=== PATIENT | female | born 1950 | race Caucasian/White ===

== ENCOUNTER 2017-01-07 19:33 | Inpatient (IN) | payer MEDICARE, OTHER ==
[2017-01-07] MEDS ORDERED: Sodium Chloride 0.9% 1,000 ML IV SCH ×3 (21:30→23:00)
[2017-01-07] MEDS ORDERED: DOPamine/Dextrose 5%-Water 400 MG/250 ML BAG IV SCH (22:15)
--- NOTE | 2017-01-07 22:39 | EDM.PDOC ---
[id number]: NAUSEA,VOMITING,DIARRHEA Time Seen by Provider: 01/07/17 21:05 Source: Reports: Patient History Limitations: Reports: No limitations - History of Present Illness INITIAL COMMENTS - FREE TEXT/NARRATIVE: pt arrived stating that she had diarrhea and vomiting for the past 2 days. She is very weak and at first was not having a obtainable bp. Timing/Duration: Reports: Day(s):, Getting worse Location: generalized Quality: Reports: other (pt states she is not having severe abdomanal pain. 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: - Infectious Disease History Infectious Disease History: Reports: Chicken pox, Measles, Mumps, Rheumatic Fever - Past Surgical History GI Surgical History: Reports: Cholecystectomy Female Surgical History: Reports: Hysterectomy Musculoskeletal Surgical History: Reports: Other (see below) Other Musculoskeletal Surgeries/Procedures:: toe surgery Social & Family History - Tobacco Use Smoking Status *Q: Never Smoker Second Hand Smoke Exposure: No - Caffeine Use Caffeine Use: Reports: None - Recreational Drug Use Recreational Drug Use: No ED ROS GENERAL - Review of Systems Review Of Systems: See Below Constitutional: Reports: weakness, diaphoresis, decreased appetite, other (pt has had diarrhea and vomiting for the past 2 days. ) HEENT: Reports: No symptoms Respiratory: Reports: No Symptoms Cardiovascular: Reports: No symptoms Endocrine: Reports: no symptoms GI/Abdominal: Reports: Abdominal pain, Other ( low bp. ) : Reports: no symptoms Musculoskeletal: Reports: no symptoms Skin: Reports: no symptoms Neurological: Reports: No Symptoms Psychiatric: Reports: Anxiety ED EXAM, GI/ABD - Physical Exam Exam: See Below Course - Vital Signs Last Recorded V/S: Last Vital Signs Temp 37.6 C 01/09/17 08:00 Pulse 107 H 01/09/17 09:00 Resp 19 01/09/17 09:00 BP 101/65 01/09/17 09:00 Pulse Ox 97 01/09/17 09:00 - Orders/Labs/Meds Labs: Laboratory Tests 01/07/17 01/07/17 01/07/17 Range/Units 21:17 21:24 21:24 WBC 7.8 (4.5-11.0) K/uL RBC 4.51 (3.30-5.50) M/uL Hgb 13.2 (12.0-15.0) g/dL Hct 38.5 (36.0-48.0) % MCV 85 (80-98) fL MCH 29 (27-31) pg MCHC 34 (32-36) % Plt Count 139 L (150-400) K/uL Add Manual Diff Yes Neutrophils % (Manual) 66 (36-66) % Band Neutrophils % 25 H (5-11) % Lymphocytes % (Manual) 1 L (24-44) % Monocytes % (Manual) 5 (2-6) % Eosinophils % (Manual) 3 (2-4) % Polychromasia Puncture Site ABG pH (7.350-7.450) ABG pCO2 (35.0-42.0) mmHg ABG pO2 (75.0-100.0) mmHg ABG HCO3 (22.0-26.0) mmol/L ABG Total CO2 (21.0-25.0) mmol/L ABG O2 Saturation (95.0-98.0) % ABG O2 Content (15.0-23.0) %vol ABG Base Excess mm/L ABG Hemoglobin (12.0-16.0) g/dL ABG Oxyhemoglobin % ABG Carboxyhemoglobin (0.0-1.6) % ABG Methemoglobin % Biju Test O2 Delivery Device Oxygen Flow Rate L Sodium (140-148) mmol/L Potassium (3.6-5.2) mmol/L Chloride (100-108) mmol/L Carbon Dioxide (21-32) mmol/L Anion Gap (5.0-14.0) mmol/L BUN (7-18) mg/dL Creatinine (0.6-1.0) mg/dL Est Cr Clr Drug Dosing mL/min Estimated GFR (MDRD) (>60) Glucose (74-106) mg/dL Lactic Acid (0.4-2.0) mmol/L Calcium (8.5-10.1) mg/dL Total Bilirubin (0.2-1.0) mg/dL AST (15-37) U/L ALT (12-78) U/L Alkaline Phosphatase (46-116) U/L Troponin I (0.000-0.056) ng/mL C-Reactive Protein 27.55 H (0.0-0.3) mg/dL Total Protein (6.4-8.2) g/dL Albumin (3.4-5.0) g/dL Globulin (2.3-3.5) g/dL Albumin/Globulin Ratio (1.2-2.2) Urine Color Yellow Urine Appearance Cloudy Urine pH 5.0 (4.5-8.0) Ur Specific [employer] 1.025 (1.008-1.030) Urine Protein 100 H (NEGATIVE) mg/dL Urine Glucose (UA) 50 H (NEGATIVE) mg/dL Urine Ketones 15 H (NEGATIVE) mg/dL Urine Occult Blood Large (NEGATIVE) Urine Nitrite Negative (NEGATIVE) Urine Bilirubin Small (NEGATIVE) Urine Urobilinogen 1 (NORMAL) mg/dL Ur Leukocyte Esterase Moderate (NEGATIVE) Urine RBC 10-20 H (0-5) Urine WBC 10-20 H (0-5) Ur Epithelial Cells Many Amorphous Sediment Many Urine Bacteria Many Urine Mucus Not seen 01/07/17 01/07/17 01/07/17 Range/Units 21:24 21:35 22:20 WBC (4.5-11.0) K/uL RBC (3.30-5.50) M/uL Hgb (12.0-15.0) g/dL Hct (36.0-48.0) % MCV (80-98) fL MCH (27-31) pg MCHC (32-36) % Plt Count (150-400) K/uL Add Manual Diff Neutrophils % (Manual) (36-66) % Band Neutrophils % (5-11) % Lymphocytes % (Manual) (24-44) % Monocytes % (Manual) (2-6) % Eosinophils % (Manual) (2-4) % Polychromasia Puncture Site Rt.radial ABG pH 7.376 (7.350-7.450) ABG pCO2 25.1 L (35.0-42.0) mmHg ABG pO2 74.5 L (75.0-100.0) mmHg ABG HCO3 14.4 L (22.0-26.0) mmol/L ABG Total CO2 13.1 L (21.0-25.0) mmol/L ABG O2 Saturation 93.7 L (95.0-98.0) % ABG O2 Content 15.6 (15.0-23.0) %vol ABG Base Excess -9.1 mm/L ABG Hemoglobin 11.9 L (12.0-16.0) g/dL ABG Oxyhemoglobin 93.0 % ABG Carboxyhemoglobin 0.2 (0.0-1.6) % ABG Methemoglobin 0.6 % Biju Test Passed O2 Delivery Device Room air Oxygen Flow Rate 0 L Sodium 143 (140-148) mmol/L Potassium 3.2 L (3.6-5.2) mmol/L Chloride 103 (100-108) mmol/L Carbon Dioxide 18 L (21-32) mmol/L Anion Gap 25.2 H (5.0-14.0) mmol/L BUN 50 H (7-18) mg/dL Creatinine 4.0 H* (0.6-1.0) mg/dL Est Cr Clr Drug Dosing 11.29 mL/min Estimated GFR (MDRD) 11 L (>60) Glucose 84 (74-106) mg/dL Lactic Acid (0.4-2.0) mmol/L Calcium 8.7 (8.5-10.1) mg/dL Total Bilirubin 0.8 (0.2-1.0) mg/dL AST 64 H (15-37) U/L ALT 60 (12-78) U/L Alkaline Phosphatase 614 H (46-116) U/L Troponin I 0.191 H* (0.000-0.056) ng/mL C-Reactive Protein (0.0-0.3) mg/dL Total Protein 6.6 (6.4-8.2) g/dL Albumin 2.8 L (3.4-5.0) g/dL Globulin 3.8 H (2.3-3.5) g/dL Albumin/Globulin Ratio 0.7 L (1.2-2.2) Urine Color Urine Appearance Urine pH (4.5-8.0) Ur Specific [employer] (1.008-1.030) Urine Protein (NEGATIVE) mg/dL Urine Glucose (UA) (NEGATIVE) mg/dL Urine Ketones (NEGATIVE) mg/dL Urine Occult Blood (NEGATIVE) Urine Nitrite (NEGATIVE) Urine Bilirubin (NEGATIVE) Urine Urobilinogen (NORMAL) mg/dL Ur Leukocyte Esterase (NEGATIVE) Urine RBC (0-5) Urine WBC (0-5) Ur Epithelial Cells Amorphous Sediment Urine Bacteria Urine Mucus 01/07/17 Range/Units 22:58 WBC (4.5-11.0) K/uL RBC (3.30-5.50) M/uL Hgb (12.0-15.0) g/dL Hct (36.0-48.0) % MCV (80-98) fL MCH (27-31) pg MCHC (32-36) % Plt Count (150-400) K/uL Add Manual Diff Neutrophils % (Manual) (36-66) % Band Neutrophils % (5-11) % Lymphocytes % (Manual) (24-44) % Monocytes % (Manual) (2-6) % Eosinophils % (Manual) (2-4) % Polychromasia Puncture Site ABG pH (7.350-7.450) ABG pCO2 (35.0-42.0) mmHg ABG pO2 (75.0-100.0) mmHg ABG HCO3 (22.0-26.0) mmol/L ABG Total CO2 (21.0-25.0) mmol/L ABG O2 Saturation (95.0-98.0) % ABG O2 Content (15.0-23.0) %vol ABG Base Excess mm/L ABG Hemoglobin (12.0-16.0) g/dL ABG Oxyhemoglobin % ABG Carboxyhemoglobin (0.0-1.6) % ABG Methemoglobin % Biju Test O2 Delivery Device Oxygen Flow Rate L Sodium (140-148) mmol/L Potassium (3.6-5.2) mmol/L Chloride (100-108) mmol/L Carbon Dioxide (21-32) mmol/L Anion Gap (5.0-14.0) mmol/L BUN (7-18) mg/dL Creatinine (0.6-1.0) mg/dL Est Cr Clr Drug Dosing mL/min Estimated GFR (MDRD) (>60) Glucose (74-106) mg/dL Lactic Acid 6.8 H (0.4-2.0) mmol/L Calcium (8.5-10.1) mg/dL Total Bilirubin (0.2-1.0) mg/dL AST (15-37) U/L ALT (12-78) U/L Alkaline Phosphatase (46-116) U/L Troponin I (0.000-0.056) ng/mL C-Reactive Protein (0.0-0.3) mg/dL Total Protein (6.4-8.2) g/dL Albumin (3.4-5.0) g/dL Globulin (2.3-3.5) g/dL Albumin/Globulin Ratio (1.2-2.2) Urine Color Urine Appearance Urine pH (4.5-8.0) Ur Specific [employer] (1.008-1.030) Urine Protein (NEGATIVE) mg/dL Urine Glucose (UA) (NEGATIVE) mg/dL Urine Ketones (NEGATIVE) mg/dL Urine Occult Blood (NEGATIVE) Urine Nitrite (NEGATIVE) Urine Bilirubin (NEGATIVE) Urine Urobilinogen (NORMAL) mg/dL Ur Leukocyte Esterase (NEGATIVE) Urine RBC (0-5) Urine WBC (0-5) Ur Epithelial Cells Amorphous Sediment Urine Bacteria Urine Mucus Meds: Medications Discontinued Medications Generic Name Dose Route Start Last Admin Trade Name Freq PRN Reason Stop Dose Admin Acetaminophen 650 mg 01/08/17 00:49 Tylenol PO Q4H PRN Pain (Mild 1-3)/fever Albuterol 2.5 mg 01/08/17 00:49 01/09/17 04:06 Proventil Neb Soln NEB 2.5 mg Q4H PRN Administration Shortness Of Breath/wheezing Diphenhydramine HCl 25 - 50 mg 01/09/17 00:48 01/09/17 08:01 Benadryl IVPUSH 50 mg Q6H PRN Administration Itching Enoxaparin Sodium 30 mg 01/08/17 01:00 01/08/17 02:54 Lovenox SUBCUT 30 mg Q24H RADHA Administration Enoxaparin Sodium 30 mg 01/08/17 22:00 Lovenox SUBCUT Q24H RADHA Enoxaparin Sodium 30 mg 01/09/17 09:00 Lovenox SUBCUT Q24H RADHA Heparin Sodium (Porcine) 500 units 01/08/17 08:45 01/08/17 12:28 Heparin Lock Flush 100 Units/Ml Syringe FLUSH 500 units ASDIRECTED PRN Administration IV Use Sodium Chloride 1,000 mls @ 999 mls/hr 01/07/17 21:30 01/07/17 21:27 Normal Saline IV 999 mls/hr ASDIRECTED RADHA Administration Sodium Chloride 1,000 mls @ 500 mls/hr 01/07/17 22:00 01/07/17 23:00 Normal Saline IV 999 mls/hr ASDIRECTED RADHA Infusion Dopamine HCl/Dextrose 400 mg in 250 mls @ 12.145 mls/hr 01/07/17 22:15 00:30 Dopamine In D5w 400 Mg/250 Ml IV 5 mcg/kg/min TITRATE RADHA 20.242 mls/hr Protocol Titration 3 MCG/KG/MIN Sodium Chloride 1,000 mls @ 999 mls/hr 01/07/17 23:00 01/07/17 23:10 Normal Saline IV 999 mls/hr ASDIRECTED RADHA Administration Piperacillin Sod/Tazobactam 50 mls @ 100 mls/hr 01/07/17 23:45 01/08/17 00:05 Sod 3.375 gm/ Sodium Chloride IV 100 mls/hr Q6H RADHA Administration Sodium Chloride Confirm 01/07/17 23:56 01/08/17 08:04 Normal Saline Administered 01/07/17 23:57 Not Given Dose 50 mls @ as directed .ROUTE .STK-MED ONE Sodium Chloride 1,000 mls @ 999 mls/hr 01/08/17 00:00 01/08/17 01:05 Normal Saline IV 999 mls/hr ASDIRECTED RADHA Administration Levofloxacin/Dextrose 500 mg/ 100 mls @ 100 mls/hr 01/08/17 00:15 01/08/17 01 :15 Premix IV 01/08/17 01:14 100 mls/hr ONETIME ONE Administration Levofloxacin/Dextrose 250 mg/ 50 mls @ 50 mls/hr 01/10/17 00:00 Premix IV Q48H RADHA Vancomycin HCl 1.5 gm/ Sodium 250 mls @ 166.667 mls/hr 01/08/17 01:00 02:23 Chloride IV 01/08/17 02:29 166.667 mls/hr ONETIME ONE Administration Lactated Ringer's 1,000 mls @ 500 mls/hr 01/08/17 00:49 01/08/17 03:57 Ringers, Lactated IV 01/08/17 04:50 999 mls/hr ASDIRECTED RADHA Administration Lactated Ringer's 1,000 mls @ 500 mls/hr 01/08/17 04:30 01/08/17 13:24 Ringers, Lactated IV 500 mls/hr ASDIRECTED RADHA Administration Piperacillin Sod/Tazobactam 50 mls @ 100 mls/hr 01/08/17 06:00 01/08/17 05:34 Sod 2.25 gm/ Sodium Chloride IV 100 mls/hr Q6H RADHA Administration Sodium Chloride Confirm 01/08/17 01:11 01/08/17 02:42 Normal Saline Administered 01/08/17 01:12 Not Given Dose 250 mls @ as directed .ROUTE .STK-MED ONE Norepinephrine Bitartrate 4 mg 250 mls @ 7.5 mls/hr 01/08/17 01:30 / Dextrose/Water IV TITRATE RADHA Protocol 2 MCG/MIN Norepinephrine Bitartrate 4 mg 250 mls @ 7.5 mls/hr 01/08/17 01:30 01/09/17 08:55 / Sodium Chloride IV 20 mcg/min TITRATE RADHA 75 mls/hr Protocol Administration 2 MCG/MIN Potassium Chloride 100 mls @ 50 mls/hr 01/08/17 03:00 01/08/17 05:56 Kcl 20 Meq In Water 100 Ml IV 01/08/17 06:59 50 mls/hr Q2H RADHA Administration Lidocaine HCl Confirm 01/08/17 04:22 01/08/17 04:40 Xylocaine-Mpf 1% Administered 01/08/17 04:23 20 ml Dose Administration 2 mls @ as directed .ROUTE .STK-MED ONE Sodium Chloride Confirm 01/08/17 04:32 01/08/17 04:58 Normal Saline Administered 01/08/17 04:33 Not Given Dose 100 mls @ as directed .ROUTE .STK-MED ONE Vasopressin 100 units/ Sodium 100 mls @ 0.6 mls/hr 01/08/17 04:45 01/08/17 22 :06 Chloride IV 0.04 units/min TITRATE RADHA 2.4 mls/hr Protocol Titration 0.01 UNITS/MIN Levofloxacin/Dextrose 500 mg/ 100 mls @ 100 mls/hr 01/09/17 22:00 Premix IV Q48H RADHA Magnesium Sulfate 2 gm/ Premix 50 mls @ 25 mls/hr 01/08/17 10:00 01/09/17 03: 30 IV 01/09/17 05:59 25 mls/hr Q6H RADHA Administration Piperacillin Sod/Tazobactam 50 mls @ 100 mls/hr 01/08/17 14:00 01/09/17 05:28 Sod 2.25 gm/ Sodium Chloride IV 100 mls/hr Q8H RADHA Administration Calcium Gluconate 2 gm/ Sodium 120 mls @ 100 mls/hr 01/08/17 12:30 01/08/17 12:54 Chloride IV 01/08/17 13:41 100 mls/hr ONETIME ONE Administration Heparin Sodium (Porcine) 5,000 501 mls @ 5 mls/hr 01/08/17 12:30 01/08/17 13: 08 units/ Sodium Chloride IV 5 mls/hr ASDIRECTED RADHA Administration Lactated Ringer's 1,000 mls @ 100 mls/hr 01/08/17 13:30 01/09/17 08:45 Ringers, Lactated IV 100 mls/hr ASDIRECTED RADHA Administration Lactated Ringer's 500 mls @ 500 mls/hr 01/08/17 21:00 01/08/17 20:53 Ringers, Lactated IV 500 mls/hr ASDIRECTED RADHA Administration Lidocaine HCl Confirm 01/07/17 23:37 01/07/17 23:52 Xylocaine 2% Jelly Administered 01/07/17 23:38 10 ml Dose Administration 10 ml .ROUTE .STK-MED ONE Lidocaine HCl Confirm 01/08/17 04:30 01/08/17 04:50 Xylocaine-Mpf 1% Administered 01/08/17 04:31 Not Given Dose 5 ml .ROUTE .STK-MED ONE Lidocaine HCl 2 ml 01/08/17 04:58 01/08/17 05:57 Xylocaine 1% INJECT 01/08/17 04:59 2 ml ONETIME ONE Administration Lorazepam 0.5 mg 01/08/17 15:00 Ativan IVPUSH Q2H PRN Anxiety Morphine Sulfate 2 - 4 mg 01/08/17 14:59 01/09/17 03:39 Morphine IVPUSH 2 mg Q1H PRN Administration Pain Ondansetron HCl 4 mg 01/08/17 00:49 Zofran IV Q4H PRN Nausea/Vomiting Oxycodone HCl 5 mg 01/08/17 00:49 01/08/17 14:05 Oxycodone PO 5 mg Q4H PRN Administration Pain (moderate 4-6) Potassium Chloride 40 meq 01/08/17 02:01 01/08/17 02:55 Klor-Con M20 PO 01/08/17 02:02 40 meq ONETIME ONE Administration Sodium Chloride 10 ml 01/08/17 00:49 Saline Flush FLUSH ASDIRECTED PRN Keep Vein Open Vancomycin HCl 1 gm 01/07/17 23:45 Vancomycin IV .PHARMACY TO DOSE RADHA Vasopressin Confirm 01/08/17 04:32 01/08/17 04:58 Vasopressin Administered 01/08/17 04:33 Not Given Dose 100 units .ROUTE .[facility] ONE - Re-Assessments/Exams Free Text/Narrative Re-Assessment/Exam: 01/12/17 07:46 pt was bolused with 4 liters of fluid in the ER.She had a cat scan which showed a large stone in her left ureter. She is truly septic. Dr Bunch came in and took over on the pt. Departure - Departure Time of Disposition: 09:00 Disposition: Admitted As Inpatient 65 Clinical Impression: Septicemia
[2017-01-07] MEDS ORDERED: Lidocaine 2% Jelly 10 ML Urojet ONE (23:37)
[2017-01-07] MEDS ORDERED: Levofloxacin/Dextrose 5%-Water 500 MG in Premix Bag 1 BAG IV SCH (23:45)
[2017-01-07] MEDS ORDERED: Vancomycin 1 GM SDV IV SCH (23:45)
[2017-01-07] MEDS ORDERED: Piperacillin/Tazobactam 3.375 GM in Sodium Chloride 0.9% 50 ML IV SCH (23:45)
[2017-01-07] MEDS ORDERED: Sodium Chloride 0.9% 50 ML ONE (23:56)
[2017-01-08] MEDS: Sodium Chloride 0.9% 1,000 ML IV SCH ×2 (00:01→01:05)
[2017-01-08] MEDS ORDERED: Levofloxacin/Dextrose 5%-Water 500 MG in Premix Bag 1 BAG IV ONE (00:15)
--- NOTE | 2017-01-08 00:43 | PCM.HP ---
H&P History of Present Illness - General Date of Service: 01/08/17 Admit Problem/Dx: Admission Diagnosis/Problem Admission Diagnosis/Problem Septicemia Source of Information: Patient, Old records, Provider, RN notes reviewed History Limitations: Reports: No limitations - History of Present Illness Initial Comments - Free Text/Narative: This patient is a 66-year-old woman who was admitted through the emergency room to the ICU with sepsis thought to be secondary to urinary tract infection. She has had pain in her left flank over the past 5 days, pain has been intermittent , more severe over the past 2 days. For the last 2 days she's had nausea and vomiting associated with some diarrhea, negligible oral intake and minimal urine output. She presented to the emergency department this evening for further evaluation and was found to be hypotensive with systolic pressures into the low 70s. Laboratory studies and clotting blood gases show evidence of a severe metabolic acidosis with respiratory compensation. PH on blood gas was normal, PCO2 was 25, and her bicarbonate level was 13. Lactic acid level is elevated at 6.8. Chest x-ray shows no obvious infiltrates. CT scan of the abdomen and pelvis shows evidence of a large ureteral stone in the proximal left ureter. No evidence of significant hydronephrosis thus far. She's received vigorous IV fluid replacement in the emergency department in her systolic pressures as well as mean arterial pressure and now within acceptable range. Blood cultures have been obtained and she's been started on IV antibiotic therapy in the emergency department. 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: - Infectious Disease History Infectious Disease History: Reports: Chicken pox, Measles, Mumps, Rheumatic Fever - Past Surgical History GI Surgical History: Reports: Cholecystectomy Female Surgical History: Reports: Hysterectomy Musculoskeletal Surgical History: Reports: Other (see below) Other Musculoskeletal Surgeries/Procedures:: toe surgery Social & Family History - Tobacco Use Smoking Status *Q: Never Smoker Second Hand Smoke Exposure: No - Caffeine Use Caffeine Use: Reports: None - Recreational Drug Use Recreational Drug Use: No H&P Review of Systems - Review of Systems: Review Of Systems: See Below General: Reports: chills, weakness, diaphoresis, decreased appetite HEENT: Reports: no symptoms Pulmonary: Reports: No Symptoms Cardiovascular: Reports: no symptoms Gastrointestinal: Reports: Abdominal pain, Anorexia, Diarrhea, Nausea, Vomiting. Denies: Constipation, Difficulty swallowing, Distension Genitourinary: Reports: flank pain. Denies: dysuria, frequency, burning, pain Musculoskeletal: Reports: no symptoms Skin: Reports: no symptoms Psychiatric: Reports: no symptoms Neurological: Reports: No Symptoms Hematologic/Lymphatic: Reports: no symptoms Immunologic: Reports: no symptoms Exam - Exam Exam: See Below - Vital Signs Vital Signs: Last Vital Signs Temp 97.2 F 01/08/17 00:20 Pulse 120 H 01/08/17 00:31 Resp 20 01/08/17 00:31 BP 82/49 L 01/08/17 00:31 Pulse Ox 96 01/08/17 00:31 Weight: 238 lb - Exam Quality Assessment: supplemental oxygen, urinary catheter, DVT prophylaxis General: alert, oriented, cooperative, moderate distress HEENT: Conjunctiva clear, EOMI, Hearing intact, Nares patent, Normal nasal septum, Posterior pharynx clear, Pupils equal, Pupils reactive. No: Mucosa moist & pink Neck: supple, trachea midline, +2 carotid pulse wo bruit Lungs: Clear to auscultation, Normal respiratory effort Cardiovascular: regular rhythm, normal S1, normal S2, tachycardia. No: irregular rhythm, bradycardia, systolic murmur, diastolic murmur Abdomen: normal bowel sounds, soft, tenderness. No: organomegaly, peritoneal signs, distention, guarding, rigidity, rebound Back Exam: normal inspection, full range of motion, CVA tenderness (L) Extremities: 3, normal inspection, 10 Skin: warm, dry, intact Neurological: cranial nerves intact, strength equal bilateral, normal speech, normal tone, sensation intact. No: focal deficit Neuro Extensive - Mental Status: alert, oriented x3, normal mood/affect, normal cognition, memory intact - Patient Data Lab Results last 24 hrs: Laboratory Results - last 24 hr 01/07/17 01/07/17 01/07/17 Range/Units 21:24 21:24 21:24 WBC 7.8 (4.5-11.0) K/uL RBC 4.51 (3.30-5.50) M/uL Hgb 13.2 (12.0-15.0) g/dL Hct 38.5 (36.0-48.0) % MCV 85 (80-98) fL MCH 29 (27-31) pg MCHC 34 (32-36) % Plt Count 139 L (150-400) K/uL Add Manual Diff Yes Neutrophils % (Manual) 66 (36-66) % Band Neutrophils % 25 H (5-11) % Lymphocytes % (Manual) 1 L (24-44) % Monocytes % (Manual) 5 (2-6) % Eosinophils % (Manual) 3 (2-4) % Polychromasia Puncture Site ABG pH (7.350-7.450) ABG pCO2 (35.0-42.0) mmHg ABG pO2 (75.0-100.0) mmHg ABG HCO3 (22.0-26.0) mmol/L ABG Total CO2 (21.0-25.0) mmol/L ABG O2 Saturation (95.0-98.0) % ABG O2 Content (15.0-23.0) %vol ABG Base Excess mm/L ABG Hemoglobin (12.0-16.0) g/dL ABG Oxyhemoglobin % ABG Carboxyhemoglobin (0.0-1.6) % ABG Methemoglobin % Biju Test O2 Delivery Device Oxygen Flow Rate L Sodium 143 (140-148) mmol/L Potassium 3.2 L (3.6-5.2) mmol/L Chloride 103 (100-108) mmol/L Carbon Dioxide 18 L (21-32) mmol/L Anion Gap 25.2 H (5.0-14.0) mmol/L BUN 50 H (7-18) mg/dL Creatinine 4.0 H* (0.6-1.0) mg/dL Est Cr Clr Drug Dosing 11.29 mL/min Estimated GFR (MDRD) 11 L (>60) Glucose 84 (74-106) mg/dL Lactic Acid (0.4-2.0) mmol/L Calcium 8.7 (8.5-10.1) mg/dL Total Bilirubin 0.8 (0.2-1.0) mg/dL AST 64 H (15-37) U/L ALT 60 (12-78) U/L Alkaline Phosphatase 614 H (46-116) U/L Troponin I (0.000-0.056) ng/mL C-Reactive Protein 27.55 H (0.0-0.3) mg/dL Total Protein 6.6 (6.4-8.2) g/dL Albumin 2.8 L (3.4-5.0) g/dL Globulin 3.8 H (2.3-3.5) g/dL Albumin/Globulin Ratio 0.7 L (1.2-2.2) 01/07/17 01/07/17 01/07/17 Range/Units 21:35 22:20 22:58 WBC (4.5-11.0) K/uL RBC (3.30-5.50) M/uL Hgb (12.0-15.0) g/dL Hct (36.0-48.0) % MCV (80-98) fL MCH (27-31) pg MCHC (32-36) % Plt Count (150-400) K/uL Add Manual Diff Neutrophils % (Manual) (36-66) % Band Neutrophils % (5-11) % Lymphocytes % (Manual) (24-44) % Monocytes % (Manual) (2-6) % Eosinophils % (Manual) (2-4) % Polychromasia Puncture Site Rt.radial ABG pH 7.376 (7.350-7.450) ABG pCO2 25.1 L (35.0-42.0) mmHg ABG pO2 74.5 L (75.0-100.0) mmHg ABG HCO3 14.4 L (22.0-26.0) mmol/L ABG Total CO2 13.1 L (21.0-25.0) mmol/L ABG O2 Saturation 93.7 L (95.0-98.0) % ABG O2 Content 15.6 (15.0-23.0) %vol ABG Base Excess -9.1 mm/L ABG Hemoglobin 11.9 L (12.0-16.0) g/dL ABG Oxyhemoglobin 93.0 % ABG Carboxyhemoglobin 0.2 (0.0-1.6) % ABG Methemoglobin 0.6 % Biju Test Passed O2 Delivery Device Room air Oxygen Flow Rate 0 L Sodium (140-148) mmol/L Potassium (3.6-5.2) mmol/L Chloride (100-108) mmol/L Carbon Dioxide (21-32) mmol/L Anion Gap (5.0-14.0) mmol/L BUN (7-18) mg/dL Creatinine (0.6-1.0) mg/dL Est Cr Clr Drug Dosing mL/min Estimated GFR (MDRD) (>60) Glucose (74-106) mg/dL Lactic Acid 6.8 H (0.4-2.0) mmol/L Calcium (8.5-10.1) mg/dL Total Bilirubin (0.2-1.0) mg/dL AST (15-37) U/L ALT (12-78) U/L Alkaline Phosphatase (46-116) U/L Troponin I 0.191 H* (0.000-0.056) ng/mL C-Reactive Protein (0.0-0.3) mg/dL Total Protein (6.4-8.2) g/dL Albumin (3.4-5.0) g/dL Globulin (2.3-3.5) g/dL Albumin/Globulin Ratio (1.2-2.2) Result Diagrams: 01/07/17 21:24 01/07/17 21:24 *Q Meaningful Use (ADM) - VTE *Q VTE Criteria *Q: - VTE Risk Assess *Q Each Risk Factor Represents 1 Point: Sepsis, Less than 1 Month Total Score 1 Point Risk Factors: 1 Each Risk Factor Represents 2 Points: Age 60 - 74 Years, Morbid Obesity (BMI Greater than 40) Total Score 2 Point Risk Factors: 4 Each Risk Factor Represents 3 Points: None Total Score 3 Point Risk Factors: 0 Each Risk Factor Represents 5 Points: None Total Score 5 Point Risk Factors: 0 Venous Thromboembolism Risk Factor Score *Q: 5 - Stroke *Q Stroke Criteria *Q: - AMI *Q AMI Criteria *Q: Problem List Initiated/Reviewed/Updated: Yes Orders Last 24hrs: Active Orders 24 hr Category Date Time Status Patient Status Manage Transfer [TRANSFER] Routine ADT 01/08/17 00:22 Active Cardiac Monitoring [RC] .As Directed Care 01/08/17 00:22 Active EKG Documentation Completion [RC] ASDIRECTED Care 01/07/17 21:32 Active Mcconnell Catheter Insertion [Insert Urinary Catheter] [OM. Care 01/07/17 22:45 Ordered PC] Q24H Urinary Catheter Assessment [RC] ASDIRECTED Care 01/07/17 22:39 Active Abdomen Pelvis wo Cont [CT] Stat Exams 01/07/17 22:09 Taken Chest 1V Frontal [CR] Stat Exams 01/07/17 21:55 Taken CULTURE BLOOD [BC] Urgent Lab 01/07/17 22:40 Received CULTURE BLOOD [BC] Urgent Lab 01/07/17 22:50 Received CULTURE URINE [RM] Stat Lab 01/07/17 23:46 Uncollected UA W/MICROSCOPIC [URIN] Urgent Lab 01/07/17 21:17 Uncollected DOPamine/Dextrose 5%-Water [DOPamine in D5W 400 MG/250 Med 01/07/17 22:15 Active ML] 400 mg in 250 ml IV TITRATE Levofloxacin/Dextrose 5%-Water [Levaquin in D5W 250 MG/ Med 01/10/17 00:00 Active 50 ML] 250 mg Premix Bag 1 bag IV Q48H Levofloxacin/Dextrose 5%-Water [Levaquin in D5W 500 MG/ Med 01/08/17 00:15 Active 100 ML] 500 mg Premix Bag 1 bag IV ONETIME Piperacillin/Tazobactam [Zosyn] 3.375 gm Med 01/07/17 23:45 Ordered Sodium Chloride 0.9% [Normal Saline] 50 ml IV Q6H Sodium Chloride 0.9% [Normal Saline] 1,000 ml Med 01/07/17 21:30 Active IV ASDIRECTED Sodium Chloride 0.9% [Normal Saline] 1,000 ml Med 01/07/17 22:00 Active IV ASDIRECTED Sodium Chloride 0.9% [Normal Saline] 1,000 ml Med 01/07/17 23:00 Active IV ASDIRECTED Sodium Chloride 0.9% [Normal Saline] 1,000 ml Med 01/08/17 00:00 Active IV ASDIRECTED Vancomycin Med 01/07/17 23:45 Ordered 1 gm IV .PHARMACY TO DOSE Blood Culture x2 Reflex Set [OM.PC] Urgent Oth 01/07/17 22:35 Ordered Resuscitation Status Routine Resus Stat 01/08/17 00:24 Ordered EKG 12 Lead [EK] Routine Ther 01/07/17 21:32 Ordered Medication Orders Sodium Chloride (Normal Saline) 1,000 mls @ 999 mls/hr IV ASDIRECTED RADHA Last Admin: 01/07/17 21:27 Dose: 999 mls/hr Sodium Chloride (Normal Saline) 1,000 mls @ 500 mls/hr IV ASDIRECTED RADHA Last Infusion: 01/07/17 23:00 Dose: 999 mls/hr Admin: 01/07/17 22:38 Dose: 500 mls/hr Dopamine HCl/Dextrose (Dopamine In D5w 400 Mg/250 Ml) 400 mg in 250 mls @ 12.145 mls/hr IV TITRATE RADHA; 3 MCG/KG/MIN PRN Reason: Protocol Last Titration: 01/08/17 00:30 Dose: 5 mcg/kg/min, 20.242 mls/hr Admin: 01/07/17 22:48 Dose: 3 mcg/kg/min, 12.145 mls/hr Sodium Chloride (Normal Saline) 1,000 mls @ 999 mls/hr IV ASDIRECTED RADHA Last Admin: 01/07/17 23:10 Dose: 999 mls/hr Piperacillin Sod/Tazobactam (Sod 3.375 gm/ Sodium Chloride) 50 mls @ 100 mls/ hr IV Q6H RADHA Last Admin: 01/08/17 00:05 Dose: 100 mls/hr Sodium Chloride (Normal Saline) 1,000 mls @ 999 mls/hr IV ASDIRECTED RADHA Last Admin: 01/08/17 00:01 Dose: 999 mls/hr Levofloxacin/Dextrose 500 mg/ (Premix) 100 mls @ 100 mls/hr IV ONETIME ONE Stop: 01/08/17 01:14 Levofloxacin/Dextrose 250 mg/ (Premix) 50 mls @ 50 mls/hr IV Q48H RADHA Vancomycin HCl (Vancomycin) 1 gm IV .PHARMACY TO DOSE RADHA Assessment/Plan Comment:: ASSESSMENT AND PLAN SEPSIS SECONDARY TO URINARY TRACT INFECTION-on initial presentation was tachycardic with significant hypotension. Blood pressure has stabilized following infusion of IV fluids, heart rate remains elevated. Evidence of significant metabolic acidosis on blood gases with respiratory compensation. Lactic acid is elevated white blood cell count is normal and she has been afebrile. CT scan shows evidence of a large stone in the left proximal ureter. Catheter has been placed but she has no urine to obtain for urinalysis or urine culture. -Blood cultures pending -Hopefully we'll be able to obtain urine or urinalysis and culture -Aggressive IV fluid replacement -Repeat lactic acid level and blood gases and a few hours -Consider use of norepinephrine fluids are in adequate to maintain desired blood pressure -IV antibiotics; vancomycin, Zosyn, and levofloxacin pending culture results METABOLIC ACIDOSIS WITH RESPIRATORY COMPENSATION -As above LARGE LEFT URETERAL CALCULUS -Will discuss with urology in a.m., they require transfer for further management. ACUTE KIDNEY INJURY-no recent labs available for comparison, creatinine significantly elevated at 4.0. -Management of hypotension as above -Closely monitor urine output and renal function ELEVATED TROPONIN-likely secondary to demand ischemia in the setting of sepsis as well as significant renal dysfunction -Serial troponin levels MAINTENANCE ISSUES -DVT prophylaxis; Lovenox 30 mg subcutaneous daily -GI prophylaxis; Protonix 40 mg by mouth daily -Mcconnell catheter; required for monitoring of urine output -Nutrition; regular diet -Nicotine dependence; not required CODE STATUS-FULL CODE ADMISSION STATUS-patient will be admitted to inpatient status, expect at least a 2 night hospital stay for evaluation and management of problems as outlined above. At the time of this admission I do not reasonably expected evaluation and management of this problem will require more than a 96 hour hospital stay. DISPOSITION-anticipate discharge to home after the hospital stay. PRIMARY CARE PROVIDER-[facility]
[2017-01-08] MEDS ORDERED: Sodium Chloride 0.9% 10 ML Syringe FLUSH PRN (00:49)
[2017-01-08] MEDS ORDERED: Ondansetron 4 MG/2 ML SDV IV PRN (00:49)
[2017-01-08] MEDS ORDERED: Acetaminophen 325 MG Tab PO PRN (00:49)
[2017-01-08] MEDS ORDERED: Enoxaparin 30 MG/0.3 ML Syringe SUBCUT SCH ×2 (01:00→22:00)
[2017-01-08] MEDS ORDERED: Sodium Chloride 0.9% 250 ML ONE (01:11)
[2017-01-08] MEDS ORDERED: Norepinephrine 4 MG in Dextrose 5% in Water 246 ML IV SCH ×2 (01:30)
[2017-01-08] MEDS: Lactated Ringers 1,000 ML IV SCH ×8 (02:01→23:11)
[2017-01-08] MEDS ORDERED: Potassium Chloride 40 MEQ in Premix Bag 1 BAG IV ONE (02:01)
[2017-01-08] MEDS ORDERED: Potassium Chloride 20 MEQ Tab.ER PO ONE (02:01)
[2017-01-08] MEDS: Potassium Chloride 100 ML IV SCH ×2 (03:58→05:56)
[2017-01-08] MEDS ORDERED: Lidocaine 1% 2 ML ONE (04:22)
[2017-01-08] MEDS ORDERED: Sodium Chloride 0.9% 100 ML ONE (04:32)
[2017-01-08] MEDS ORDERED: Vasopressin 20 Units/1 ML MDV ONE (04:32)
[2017-01-08] MEDS: oxyCODONE 5 MG Tab PO PRN ×2 (04:57→14:05)
[2017-01-08] MEDS ORDERED: Lidocaine 1% 50 ML MDV INJECT ONE (04:58)
[2017-01-08] MEDS ORDERED: Piperacillin/Tazobactam 2.25 GM in Sodium Chloride 0.9% 50 ML IV SCH ×2 (06:00→14:00)
[2017-01-08] MEDS: Magnesium Sulfate/Water 2 GM in Premix Bag 1 BAG IV SCH ×3 (09:30→21:30)
--- NOTE | 2017-01-08 09:33 | PCM.PN ---
- General Info Date of Service: 01/08/17 Functional Status: Reports: pain controlled - Review of Systems General: Reports: Fever, Weakness, Chills Pulmonary: Reports: no symptoms Cardiovascular: Reports: No Symptoms Gastrointestinal: Reports: Abdominal pain. Denies: Nausea, Vomiting Genitourinary: Reports: flank pain Systems Review Comment:: This patient has had ongoing sepsis with hypotension and poor urinary output since admission early this morning. In addition to aggressive IV fluid replacement we have needed to his IV norepinephrine as well as IV vasopressin to maintain adequate blood pressure. Urine output has been negligible, labs from this morning show persistent and severe metabolic acidosis. She continues to experience some chronic pain as well as left lower quadrant abdominal pain. - Patient Data Vitals - most recent: Last Vital Signs Temp 98.1 F 01/08/17 09:00 Pulse 103 H 01/08/17 09:00 Resp 31 H 01/08/17 09:00 BP 88/60 L 01/08/17 09:00 Pulse Ox 99 01/08/17 09:00 Weight - most recent: 238 lb I&O - last 24 hours: Intake & Output 01/07/17 01/08/17 01/08/17 22:59 06:59 14:59 Intake Total 8800 1000 Output Total 30 Balance 8770 1000 Lab Results last 24 hrs: Laboratory Results - last 24 hr 01/08/17 01/08/17 01/08/17 Range/Units 01:21 06:30 06:30 WBC 21.5 H (4.5-11.0) K/uL RBC 3.87 (3.30-5.50) M/uL Hgb 10.9 L D (12.0-15.0) g/dL Hct 33.0 L (36.0-48.0) % POC Hct (36-48) % MCV 85 (80-98) fL MCH 28 (27-31) pg MCHC 33 (32-36) % Plt Count 129 L (150-400) K/uL Add Manual Diff Yes Neutrophils % (Manual) 66 (36-66) % Band Neutrophils % 26 H (5-11) % Lymphocytes % (Manual) 4 L (24-44) % Monocytes % (Manual) 4 (2-6) % Sample Site POC ABG pH (7.35-7.45) POC ABG pCO2 (35-45) mmHG POC ABG pO2 (80-105) mmHg POC ABG HCO3 (22.0-26.0) mmol/L POC ABG Total CO2 (23-27) mmol/L POC ABG O2 Sat (95-98) % POC ABG Base Excess (-2-3) mmol/L Biju Test O2 Delivery Device POC O2 Flow Rate POC Sodium (140-148) mmol/L Sodium 145 143 (140-148) mmol/L POC Potassium (3.5-4.9) mmol/L Potassium 3.1 L 3.7 (3.6-5.2) mmol/L Chloride 109 H 110 H (100-108) mmol/L Carbon Dioxide 16 L 14 L (21-32) mmol/L Anion Gap 23.1 H 22.7 H (5.0-14.0) mmol/L BUN 47 H 42 H (7-18) mg/dL Creatinine 3.7 H* 3.3 H (0.6-1.0) mg/dL Est Cr Clr Drug Dosing 12.20 13.68 mL/min Estimated GFR (MDRD) 12 L 14 L (>60) Glucose 90 132 H (74-106) mg/dL Lactic Acid (0.4-2.0) mmol/L Calcium 7.5 L 7.0 L (8.5-10.1) mg/dL POC WB Ioniz Calcium (1.12-1.32) mmol/L Magnesium 0.9 L (1.8-2.4) mg/dL Troponin I 0.131 H* 0.151 H* (0.000-0.056) ng/mL 01/08/17 01/08/17 Range/Units 06:37 07:34 WBC (4.5-11.0) K/uL RBC (3.30-5.50) M/uL Hgb (12.0-15.0) g/dL Hct (36.0-48.0) % POC Hct 30 L (36-48) % MCV (80-98) fL MCH (27-31) pg MCHC (32-36) % Plt Count (150-400) K/uL Add Manual Diff Neutrophils % (Manual) (36-66) % Band Neutrophils % (5-11) % Lymphocytes % (Manual) (24-44) % Monocytes % (Manual) (2-6) % Sample Site Rt radial POC ABG pH 7.39 (7.35-7.45) POC ABG pCO2 18.9 L* (35-45) mmHG POC ABG pO2 75 L (80-105) mmHg POC ABG HCO3 11.3 L (22.0-26.0) mmol/L POC ABG Total CO2 12 L (23-27) mmol/L POC ABG O2 Sat 95 (95-98) % POC ABG Base Excess -14 L (-2-3) mmol/L Biju Test Performed O2 Delivery Device Nasal cannula POC O2 Flow Rate 1 POC Sodium 135 L (140-148) mmol/L Sodium (140-148) mmol/L POC Potassium 3.6 (3.5-4.9) mmol/L Potassium (3.6-5.2) mmol/L Chloride (100-108) mmol/L Carbon Dioxide (21-32) mmol/L Anion Gap (5.0-14.0) mmol/L BUN (7-18) mg/dL Creatinine (0.6-1.0) mg/dL Est Cr Clr Drug Dosing mL/min Estimated GFR (MDRD) (>60) Glucose (74-106) mg/dL Lactic Acid 5.0 H (0.4-2.0) mmol/L Calcium (8.5-10.1) mg/dL POC WB Ioniz Calcium 1.08 L (1.12-1.32) mmol/L Magnesium (1.8-2.4) mg/dL Troponin I (0.000-0.056) ng/mL Med Orders - Current: Current Medications Acetaminophen (Tylenol) 650 mg PO Q4H PRN PRN Reason: Pain (Mild 1-3)/fever Albuterol (Proventil Neb Soln) 2.5 mg NEB Q4H PRN PRN Reason: Shortness Of Breath/wheezing Enoxaparin Sodium (Lovenox) 30 mg SUBCUT Q24H [facility] Heparin Sodium (Porcine) (Heparin Lock Flush 100 Units/Ml Syringe) 500 units FLUSH ASDIRECTED PRN PRN Reason: IV Use Lactated Ringer's (Ringers, Lactated) 1,000 mls @ 500 mls/hr IV ASDIRECTED [facility] Last Admin: 01/08/17 09:10 Dose: 500 mls/hr Norepinephrine Bitartrate 4 mg (/ Sodium Chloride) 250 mls @ 7.5 mls/hr IV TITRATE RADHA; 2 MCG/MIN PRN Reason: Protocol Last Admin: 01/08/17 06:24 Dose: 20 mcg/min, 75 mls/hr Vasopressin 100 units/ Sodium (Chloride) 100 mls @ 0.6 mls/hr IV TITRATE RADHA; 0.01 UNITS/MIN PRN Reason: Protocol Last Titration: 01/08/17 05:33 Dose: 0.02 units/min, 1.2 mls/hr Levofloxacin/Dextrose 500 mg/ (Premix) 100 mls @ 100 mls/hr IV Q48H [facility] Magnesium Sulfate 2 gm/ Premix 50 mls @ 25 mls/hr IV Q6H [facility] Stop: 01/09/17 05:59 Piperacillin Sod/Tazobactam (Sod 2.25 gm/ Sodium Chloride) 50 mls @ 100 mls/hr IV Q8H [facility] Ondansetron HCl (Zofran) 4 mg IV Q4H PRN PRN Reason: Nausea/Vomiting Oxycodone HCl (Oxycodone) 5 mg PO Q4H PRN PRN Reason: Pain (moderate 4-6) Last Admin: 01/08/17 04:57 Dose: 5 mg Sodium Chloride (Saline Flush) 10 ml FLUSH ASDIRECTED PRN PRN Reason: Keep Vein Open Vancomycin HCl (Vancomycin) 1 gm IV .PHARMACY TO DOSE RAD[facility] Discontinued Medications Enoxaparin Sodium (Lovenox) 30 mg SUBCUT Q24H [facility] Last Admin: 01/08/17 02:54 Dose: 30 mg Enoxaparin Sodium (Lovenox) 30 mg SUBCUT Q24H [facility] Sodium Chloride (Normal Saline) 1,000 mls @ 999 mls/hr IV ASDIRECTED [facility] Last Admin: 01/07/17 21:27 Dose: 999 mls/hr Sodium Chloride (Normal Saline) 1,000 mls @ 500 mls/hr IV ASDIRECTED [facility] Last Infusion: 01/07/17 23:00 Dose: 999 mls/hr Dopamine HCl/Dextrose (Dopamine In D5w 400 Mg/250 Ml) 400 mg in 250 mls @ 12.145 mls/hr IV TITRATE RADHA; 3 MCG/KG/MIN PRN Reason: Protocol Last Titration: 01/08/17 00:30 Dose: 5 mcg/kg/min, 20.242 mls/hr Sodium Chloride (Normal Saline) 1,000 mls @ 999 mls/hr IV ASDIRECTED [facility] Last Admin: 01/07/17 23:10 Dose: 999 mls/hr Piperacillin Sod/Tazobactam (Sod 3.375 gm/ Sodium Chloride) 50 mls @ 100 mls/ hr IV Q6H [facility] Last Admin: 01/08/17 00:05 Dose: 100 mls/hr Sodium Chloride (Normal Saline) Confirm Administered Dose 50 mls @ as directed .ROUTE .STK-MED ONE Stop: 01/07/17 23:57 Last Admin: 01/08/17 08:04 Dose: Not Given Sodium Chloride (Normal Saline) 1,000 mls @ 999 mls/hr IV ASDIRECTED [facility] Last Admin: 01/08/17 01:05 Dose: 999 mls/hr Levofloxacin/Dextrose 500 mg/ (Premix) 100 mls @ 100 mls/hr IV ONETIME ONE Stop: 01/08/17 01:14 Last Admin: 01/08/17 01:15 Dose: 100 mls/hr Levofloxacin/Dextrose 250 mg/ (Premix) 50 mls @ 50 mls/hr IV Q48H [facility] Vancomycin HCl 1.5 gm/ Sodium (Chloride) 250 mls @ 166.667 mls/hr IV ONETIME ONE Stop: 01/08/17 02:29 Last Admin: 01/08/17 02:23 Dose: 166.667 mls/hr Lactated Ringer's (Ringers, Lactated) 1,000 mls @ 500 mls/hr IV ASDIRECTED [facility] Stop: 01/08/17 04:50 Last Admin: 01/08/17 03:57 Dose: 999 mls/hr Piperacillin Sod/Tazobactam (Sod 2.25 gm/ Sodium Chloride) 50 mls @ 100 mls/hr IV Q6H [facility] Last Admin: 01/08/17 05:34 Dose: 100 mls/hr Sodium Chloride (Normal Saline) Confirm Administered Dose 250 mls @ as directed .ROUTE .STK-MED ONE Stop: 01/08/17 01:12 Last Admin: 01/08/17 02:42 Dose: Not Given Norepinephrine Bitartrate 4 mg (/ Dextrose/Water) 250 mls @ 7.5 mls/hr IV TITRATE RADHA; 2 MCG/MIN PRN Reason: Protocol Potassium Chloride (Kcl 20 Meq In Water 100 Ml) 100 mls @ 50 mls/hr IV Q2H [facility] Stop: 01/08/17 06:59 Last Admin: 01/08/17 05:56 Dose: 50 mls/hr Lidocaine HCl (Xylocaine-Mpf 1%) Confirm Administered Dose 2 mls @ as directed .ROUTE .STK-MED ONE Stop: 01/08/17 04:23 Last Admin: 01/08/17 04:40 Dose: 20 ml Sodium Chloride (Normal Saline) Confirm Administered Dose 100 mls @ as directed .ROUTE .STK-MED ONE Stop: 01/08/17 04:33 Last Admin: 01/08/17 04:58 Dose: Not Given Lidocaine HCl (Xylocaine 2% Jelly) Confirm Administered Dose 10 ml .ROUTE .STK- MED ONE Stop: 01/07/17 23:38 Last Admin: 01/07/17 23:52 Dose: 10 ml Lidocaine HCl (Xylocaine-Mpf 1%) Confirm Administered Dose 5 ml .ROUTE .STFashionStake-MED ONE Stop: 01/08/17 04:31 Last Admin: 01/08/17 04:50 Dose: Not Given Lidocaine HCl (Xylocaine 1%) 2 ml INJECT ONETIME ONE Stop: 01/08/17 04:59 Last Admin: 01/08/17 05:57 Dose: 2 ml Potassium Chloride (Klor-Con M20) 40 meq PO ONETIME ONE Stop: 01/08/17 02:02 Last Admin: 01/08/17 02:55 Dose: 40 meq Vasopressin (Vasopressin) Confirm Administered Dose 100 units .ROUTE .STK-MED ONE Stop: 01/08/17 04:33 Last Admin: 01/08/17 04:58 Dose: Not Given - Exam Quality Assessment: supplemental oxygen, urine catheter, DVT prophylaxis General: alert, oriented, cooperative, severe distress Lungs: Clear to auscultation. No: Rales, Rhonchi, Wheezing Cardiovascular: Regular Rhythm, No Murmurs, Tachycardia Abdomen: bowel sounds present, soft, no distension, tenderness. No: rigidity, rebound, guarding Extremities: edema Skin: warm, dry, intact - Problem List Review Problem List Initiated/Reviewed/Updated: Yes - My Orders Last 24 Hours: My Active Orders 01/08/17 00:24 Resuscitation Status Routine 01/08/17 00:49 Patient Status [ADT] Routine Intake and Output [RC] QSHIFT Notify Provider Vital Signs [RC] ASDIRECTED Oxygen Therapy [RC] PRN Peripheral IV Care [RC] . DIRECTED RT Aerosol Therapy [RC] ASDIRECTED Up With Assistance [RC] ASDIRECTED VTE/DVT Education [RC] Per Unit Routine Vital Signs [RC] Q1H Acetaminophen [Tylenol] 650 mg PO Q4H PRN Albuterol [Proventil Neb Soln] 2.5 mg NEB Q4H PRN Ondansetron [Zofran] 4 mg IV Q4H PRN Sodium Chloride 0.9% [Saline Flush] 10 ml FLUSH ASDIRECTED PRN oxyCODONE 5 mg PO Q4H PRN Peripheral IV Insertion Adult [OM.PC] Routine 01/08/17 01:30 Norepinephrine [Levophed] 4 mg Sodium Chloride 0.9% [Normal Saline] 246 ml IV TITRATE 01/08/17 04:30 Lactated Ringers [Ringers, Lactated] 1,000 ml IV ASDIRECTED 01/08/17 04:45 Vasopressin 100 units Sodium Chloride 0.9% [Normal Saline] 95 ml IV TITRATE 01/08/17 08:45 Heparin Sodium [Heparin Lock Flush 100 Units/ML Syringe] 500 units FLUSH ASDIRECTED PRN 01/08/17 08:59 Abdomen Pelvis wo Cont [CT] Stat 01/08/17 09:01 Notify Provider Consults [RC] ASDIRECTED Consult to Physician [CONS] Urgent 01/08/17 10:00 Magnesium Sulfate/Water [Magnesium Sulfate 2 GM in Water 50 ML] 2 gm Premix Bag 1 bag IV Q6H 01/08/17 11:00 BASIC METABOLIC PANEL,BMP [CHEM] Stat BLOOD GAS ARTERIAL [BG] Stat 01/08/17 14:00 Piperacillin/Tazobactam [Zosyn] 2.25 gm Sodium Chloride 0.9% [Normal Saline] 50 ml IV Q8H 01/08/17 17:00 BASIC METABOLIC PANEL,BMP [CHEM] Stat BLOOD GAS ARTERIAL [BG] Stat CBC WITH AUTO DIFF [HEME] Stat LACTIC ACID [CHEM] Stat 01/08/17 Breakfast Regular Diet [DIET] 01/09/17 05:00 BLOOD GAS ARTERIAL [BG] Timed CBC WITH AUTO DIFF [HEME] Timed COMPREHENSIVE METABOLIC PN,CMP [CHEM] Timed LACTIC ACID [CHEM] Timed MAGNESIUM [CHEM] Timed 01/09/17 09:00 Enoxaparin [Lovenox] 30 mg SUBCUT Q24H 01/09/17 14:00 VANCOMYCIN TROUGH [CHEM] Routine 01/09/17 22:00 Levofloxacin/Dextrose 5%-Water [Levaquin in D5W 500 MG/100 ML] 500 mg Premix Bag 1 bag IV Q48H - Plan Plan:: ASSESSMENT AND PLAN SEPSIS SECONDARY TO URINARY TRACT INFECTION-persistent sepsis with marked hypotension, requiring ongoing aggressive fluid replacement as well as IV norepinephrine and IV vasopressin. Metabolic acidosis has improved only modestly since admission. -Blood cultures and urine culture pending -Aggressive IV fluid replacement -Followup labs in the a.m., later this afternoon, in the late morning today -Continue IV norepinephrine and vasopressin for maintenance of adequate pressures -IV antibiotics; vancomycin, Zosyn, and levofloxacin pending culture results -Repeat CT scan of the abdomen and pelvis rule out underlying ischemic bowel METABOLIC ACIDOSIS WITH RESPIRATORY COMPENSATION -As above LARGE LEFT URETERAL CALCULUS -Followup with urology when stable ACUTE KIDNEY INJURY-no recent labs available for comparison, creatinine has improved modestly but urine output remains negligible. -Management of hypotension as above -Closely monitor urine output and renal function ELEVATED TROPONIN-likely secondary to demand ischemia in the setting of sepsis as well as significant renal dysfunction -Serial troponin levels MAINTENANCE ISSUES -DVT prophylaxis; Lovenox 30 mg subcutaneous daily -GI prophylaxis; Protonix 40 mg by mouth daily -Mcconnell catheter; required for monitoring of urine output -Nutrition; regular diet -Nicotine dependence; not required CODE STATUS-FULL CODE ADMISSION STATUS-patient will be admitted to inpatient status, expect at least a 2 night hospital stay for evaluation and management of problems as outlined above. At the time of this admission I do not reasonably expected evaluation and management of this problem will require more than a 96 hour hospital stay. DISPOSITION-anticipate discharge to home after the hospital stay. PRIMARY CARE PROVIDER-[facility]
[2017-01-08] MEDS: Heparin Sodium 5,000 UNITS in Sodium Chloride 0.9% 500 ML IV SCH ×2 (12:28→13:08)
[2017-01-08] MEDS ORDERED: Calcium Gluconate 2 GM in Sodium Chloride 0.9% 100 ML IV ONE (12:30)
[2017-01-08] MEDS: Piperacillin/Tazobactam 2.25 GM in Sodium Chloride 0.9% 50 ML IV SCH ×2 (14:09→21:34)
[2017-01-08] MEDS ORDERED: LORazepam 2 MG/ML MDV IVPUSH PRN (15:00)
[2017-01-08] MEDS: Morphine 2 MG/ML Syringe IVPUSH PRN (15:07)
[2017-01-08] MEDS ORDERED: Lactated Ringers 500 ML IV SCH (21:00)
[2017-01-09] MEDS: diphenhydrAMINE 50 MG/ML SDV IVPUSH PRN ×2 (00:59→08:01)
[2017-01-09] MEDS: Albuterol 0.083% 2.5 MG/3 ML Neb Soln NEB PRN ×2 (01:46→04:06)
[2017-01-09] MEDS: Magnesium Sulfate/Water 2 GM in Premix Bag 1 BAG IV SCH (03:30)
[2017-01-09] MEDS: Morphine 2 MG/ML Syringe IVPUSH PRN (03:39)
[2017-01-09] MEDS: Piperacillin/Tazobactam 2.25 GM in Sodium Chloride 0.9% 50 ML IV SCH (05:28)
[2017-01-09] MEDS: Lactated Ringers 1,000 ML IV SCH (08:45)
--- NOTE | 2017-01-09 08:45 | PCM.DCSUM1 ---
Discharge Summary - Hospital Course Brief History: Healthy 66-year-old female who presented with nausea, vomiting and flank pain. She was admitted for management of left proximal ureteral stone with sepsis, acute kidney injury and anion gap metabolic acidosis - Discharge Data Discharge Date: 01/09/17 Discharge Disposition: DC/Tfer to [facility] 02 Condition: Serious - Discharge Diagnosis/Problem(s) (1) Septic shock SNOMED Code(s): 50448875 ICD Code: A41.9 - SEPSIS, UNSPECIFIED ORGANISM; R65.21 - SEVERE SEPSIS WITH SEPTIC SHOCK Status: Acute Current Visit: Yes (2) Left ureteral calculus SNOMED Code(s): 23456514 ICD Code: N20.1 - CALCULUS OF URETER Status: Acute Current Visit: Yes (3) Acute kidney injury SNOMED Code(s): 56106466 ICD Code: N17.9 - ACUTE KIDNEY FAILURE, UNSPECIFIED Status: Acute Current Visit: Yes (4) High anion gap metabolic acidosis SNOMED Code(s): 40213854 ICD Code: E87.2 - ACIDOSIS Status: Acute Current Visit: Yes (5) Elevated troponin SNOMED Code(s): 559427744, 069147026 ICD Code: R74.8 - ABNORMAL LEVELS OF OTHER SERUM ENZYMES Status: Acute Current Visit: Yes - Patient Summary/Data Consults: Consultations 01/08/17 09:01 Consult to Physician [CONS] Urgent Consulting Provider: Lamin Kincaidesy Call Completed to Consulting Physician: Yes Reason for Consult: Central line placement, for management of sepsis Hospital Course: Ori presented to the emergency room on January 07 with nausea, vomiting and left flank pain. Workup in the emergency room revealed a 6 mm left proximal ureteral stone with mild hydronephrosis. Also noted on laboratory testing was a mild troponin elevation, acute kidney injury with a creatinine of 4, high anion gap metabolic acidosis and significant leukocytosis. There was evidence for sepsis on arrival. Cultures were obtained in the emergency room. She was admitted to the intensive care unit and started on broad-spectrum IV antibiotics. Aggressive IV fluid resuscitation was initiated. Overnight following admission her blood pressure dropped despite the aggressive volume resuscitation and norepinephrine was initiated. After this vasopressor was titrated to a maximum dose vasopressin was added as a second pressor. By the morning after admission her blood pressures had stabilized. Kidney function as far as blood testing remained stable but her urine output had been suboptimal. Her lactic acid level which was 6.8 on arrival had been trending down. With the persistent anion gap metabolic acidosis there was some concern for ischemic bowel in a repeat CT scan was obtained but did not show any evidence for bowel ischemia. Again noted was the large proximal ureter CT stone. White blood cell count improved overnight following admission. Throughout the day she was more hemodynamically stable requiring only one vasopressor. Repeat laboratory testing later in the day revealed a troponin elevation at 1.7 though the level has trended down since then. She did not have any chest pain in the elevation was thought to be a combination of septic shock and poor renal clearance. Throughout the day and overnight she did continue to require the vasopressor support and vasopressin was reinitiated in the evening prior to the day of discharge. She has received about 20 L of IV fluid per the I and O flow chart. CVP has been running in the upper teens. ABG's have shown a pH that has been trending down with persistent decrease in bicarb levels c/w attempt at respiratory compensation. Most recent pH was 7.26. On the morning of discharge she remains on high-dose norepinephrine and vasopressin. Mean arterial pressures are acceptable. Urine output overnight has been very poor. Aerobic blood cultures are growing a gram-negative rebecca with identification pending. Urine culture is growing mixed nikos. WBC has jumped from 7 to 32. She has a persistent elevation of lactic acid. I am concerned that she has refractory septic shock with a urinary tract infection and this is further complicated by the large proximal ureteral stone that will likely not pass given its size. I think that we're going to have significant difficulty treating the infection until the stone can be bypassed with a stent or removed. She has minimal urine output with a anion gap metabolic acidosis and may require dialysis if her urine output does not improve (only 100 ml during the overnight shift). Electrolytes are acceptable at this time though K + level has been trending up. I discussed her case with Dr. Houston, the trolley coach driver, at [facility] in [place]. She was agreeable to accept Mrs Han's care in transfer. She will be transferred by air ambulance to [facility] in [place] or she will be admitted to their intensive care unit and have urology consultation. Hemodynamically she is very tenuous requiring vasopressors and would benefit from air transfer rather than ground ambulance. I did try to notify her granddaughter Amalia who is listed as her person to notify and next of kin but was not able to reach her and have not received a return phone call. Current antibiotics: Vancomycin, levofloxacin and Pip/Tazo Current vasopressors: Norepinephrine and vasopressin IV access: 2 peripheral IVs and a subclavian central line - Patient Instructions Diet: NPO Activity: Bedrest Driving: Do Not Drive Notify Provider of: Fever, Increased Pain, Nausea and/or Vomiting Other/Special Instructions: Transfer to [facility]. Dx: septic shock 2/2 ureteral stone and UTI. Accepting physician: Dr Houston - Discharge Plan Home Medications: Home Meds NK [No Known Home Meds] 09/28/15 [History] Patient Handouts: Kidney Stones, [id number] Referrals: Nano Agarwal MD [Primary Care Provider] - (follow up after the hospital stay ) - Discharge Summary/Plan Comment DC Time >30 min.: Yes (60 - transfer to acute hospital) - Patient Data Vitals - Most Recent: Last Vital Signs Temp 36.9 C 01/09/17 06:00 Pulse 107 H 01/09/17 07:29 Resp 17 01/09/17 07:29 BP 99/59 L 01/09/17 07:29 Pulse Ox 96 01/09/17 07:29 Weight - Most Recent: 123.967 kg I&O - Last 24 hours: Intake & Output 01/08/17 01/09/17 01/09/17 22:59 06:59 14:59 Intake Total 9720 2215 Output Total 45 100 Balance 9675 2115 Lab Results - Last 24 hrs: Laboratory Results - last 24 hr 01/08/17 01/08/17 01/08/17 Range/Units 11:00 11:00 17:00 WBC 7.6 (4.5-11.0) K/uL RBC 4.14 (3.30-5.50) M/uL Hgb 11.6 L (12.0-15.0) g/dL Hct 35.3 L (36.0-48.0) % MCV 85 (80-98) fL MCH 28 (27-31) pg MCHC 33 (32-36) % Plt Count 103 L (150-400) K/uL Add Manual Diff Yes Neutrophils % (Manual) 74 H (36-66) % Band Neutrophils % 14 H (5-11) % Lymphocytes % (Manual) 3 L (24-44) % Monocytes % (Manual) 1 L (2-6) % Metamyelocytes % 8 % Nucleated RBCs 1 Puncture Site Lt radial ABG pH 7.306 L (7.350-7.450) ABG pCO2 19.8 L* (35.0-42.0) mmHg ABG pO2 102.0 H (75.0-100.0) mmHg ABG HCO3 9.6 L (22.0-26.0) mmol/L ABG Total CO2 8.9 L (21.0-25.0) mmol/L ABG O2 Saturation 96.6 (95.0-98.0) % ABG O2 Content 15.3 (15.0-23.0) %vol ABG Base Excess -15.1 mm/L ABG Hemoglobin 11.3 L (12.0-16.0) g/dL ABG Oxyhemoglobin 95.9 % ABG Carboxyhemoglobin 0.1 (0.0-1.6) % ABG Methemoglobin 0.6 % Biju Test Passed O2 Delivery Device Nasal cannula Oxygen Flow Rate 1 L Sodium 141 (140-148) mmol/L Potassium 4.7 (3.6-5.2) mmol/L Chloride 110 H (100-108) mmol/L Carbon Dioxide 10 L (21-32) mmol/L Anion Gap 25.7 H (5.0-14.0) mmol/L BUN 43 H (7-18) mg/dL Creatinine 3.1 H (0.6-1.0) mg/dL Est Cr Clr Drug Dosing 14.57 mL/min Estimated GFR (MDRD) 15 L (>60) Glucose 130 H (74-106) mg/dL Lactic Acid (0.4-2.0) mmol/L Calcium 7.6 L (8.5-10.1) mg/dL Magnesium (1.8-2.4) mg/dL Total Bilirubin (0.2-1.0) mg/dL AST (15-37) U/L ALT (12-78) U/L Alkaline Phosphatase (46-116) U/L Troponin I (0.000-0.056) ng/mL Total Protein (6.4-8.2) g/dL Albumin (3.4-5.0) g/dL Globulin (2.3-3.5) g/dL Albumin/Globulin Ratio (1.2-2.2) 01/08/17 01/08/17 01/08/17 Range/Units 17:00 17:00 17:00 WBC (4.5-11.0) K/uL RBC (3.30-5.50) M/uL Hgb (12.0-15.0) g/dL Hct (36.0-48.0) % MCV (80-98) fL MCH (27-31) pg MCHC (32-36) % Plt Count (150-400) K/uL Add Manual Diff Neutrophils % (Manual) (36-66) % Band Neutrophils % (5-11) % Lymphocytes % (Manual) (24-44) % Monocytes % (Manual) (2-6) % Metamyelocytes % % Nucleated RBCs Puncture Site Lt brachial ABG pH 7.264 L (7.350-7.450) ABG pCO2 21.5 L (35.0-42.0) mmHg ABG pO2 113.0 H (75.0-100.0) mmHg ABG HCO3 9.4 L (22.0-26.0) mmol/L ABG Total CO2 8.8 L (21.0-25.0) mmol/L ABG O2 Saturation 97.2 (95.0-98.0) % ABG O2 Content 15.8 (15.0-23.0) %vol ABG Base Excess -16.0 mm/L ABG Hemoglobin 11.6 L (12.0-16.0) g/dL ABG Oxyhemoglobin 95.4 % ABG Carboxyhemoglobin 1.3 (0.0-1.6) % ABG Methemoglobin 0.6 % Biju Test Passed O2 Delivery Device Nasal cannula Oxygen Flow Rate 0 L Sodium 143 (140-148) mmol/L Potassium 4.8 (3.6-5.2) mmol/L Chloride 111 H (100-108) mmol/L Carbon Dioxide 11 L (21-32) mmol/L Anion Gap 25.8 H (5.0-14.0) mmol/L BUN 43 H (7-18) mg/dL Creatinine 3.3 H (0.6-1.0) mg/dL Est Cr Clr Drug Dosing 13.68 mL/min Estimated GFR (MDRD) 14 L (>60) Glucose 59 L (74-106) mg/dL Lactic Acid 5.6 H (0.4-2.0) mmol/L Calcium 7.7 L (8.5-10.1) mg/dL Magnesium (1.8-2.4) mg/dL Total Bilirubin (0.2-1.0) mg/dL AST (15-37) U/L ALT (12-78) U/L Alkaline Phosphatase (46-116) U/L Troponin I 1.796 H* (0.000-0.056) ng/mL Total Protein (6.4-8.2) g/dL Albumin (3.4-5.0) g/dL Globulin (2.3-3.5) g/dL Albumin/Globulin Ratio (1.2-2.2) 01/08/17 01/08/17 01/09/17 Range/Units 23:00 23:00 05:00 WBC (4.5-11.0) K/uL RBC (3.30-5.50) M/uL Hgb (12.0-15.0) g/dL Hct (36.0-48.0) % MCV (80-98) fL MCH (27-31) pg MCHC (32-36) % Plt Count (150-400) K/uL Add Manual Diff Neutrophils % (Manual) (36-66) % Band Neutrophils % (5-11) % Lymphocytes % (Manual) (24-44) % Monocytes % (Manual) (2-6) % Metamyelocytes % % Nucleated RBCs Puncture Site R radial ABG pH 7.237 L (7.350-7.450) ABG pCO2 28.4 L (35.0-42.0) mmHg ABG pO2 86.6 (75.0-100.0) mmHg ABG HCO3 11.6 L (22.0-26.0) mmol/L ABG Total CO2 11.0 L (21.0-25.0) mmol/L ABG O2 Saturation 94.5 L (95.0-98.0) % ABG O2 Content 15.5 (15.0-23.0) %vol ABG Base Excess -14.3 mm/L ABG Hemoglobin 11.6 L (12.0-16.0) g/dL ABG Oxyhemoglobin 94.0 % ABG Carboxyhemoglobin 0.1 (0.0-1.6) % ABG Methemoglobin 0.4 % Biju Test Ok O2 Delivery Device Nasal cannula Oxygen Flow Rate 2 L Sodium 145 (140-148) mmol/L Potassium 4.5 (3.6-5.2) mmol/L Chloride 112 H (100-108) mmol/L Carbon Dioxide 13 L (21-32) mmol/L Anion Gap 24.5 H (5.0-14.0) mmol/L BUN 45 H (7-18) mg/dL Creatinine 3.5 H (0.6-1.0) mg/dL Est Cr Clr Drug Dosing 12.90 mL/min Estimated GFR (MDRD) 13 L (>60) Glucose 76 (74-106) mg/dL Lactic Acid 2.7 H (0.4-2.0) mmol/L Calcium 8.2 L (8.5-10.1) mg/dL Magnesium (1.8-2.4) mg/dL Total Bilirubin (0.2-1.0) mg/dL AST (15-37) U/L ALT (12-78) U/L Alkaline Phosphatase (46-116) U/L Troponin I (0.000-0.056) ng/mL Total Protein (6.4-8.2) g/dL Albumin (3.4-5.0) g/dL Globulin (2.3-3.5) g/dL Albumin/Globulin Ratio (1.2-2.2) 01/09/17 01/09/17 01/09/17 Range/Units 05:00 05:00 05:00 WBC 32.7 H* (4.5-11.0) K/uL RBC 3.91 (3.30-5.50) M/uL Hgb 11.3 L (12.0-15.0) g/dL Hct 33.6 L (36.0-48.0) % MCV 86 (80-98) fL MCH 29 (27-31) pg MCHC 34 (32-36) % Plt Count 99 L (150-400) K/uL Add Manual Diff Yes Neutrophils % (Manual) 75 H (36-66) % Band Neutrophils % 15 H (5-11) % Lymphocytes % (Manual) 6 L (24-44) % Monocytes % (Manual) 4 (2-6) % Metamyelocytes % % Nucleated RBCs Puncture Site Rt radial ABG pH 7.262 L (7.350-7.450) ABG pCO2 24.5 L (35.0-42.0) mmHg ABG pO2 99.9 (75.0-100.0) mmHg ABG HCO3 10.7 L (22.0-26.0) mmol/L ABG Total CO2 10.1 L (21.0-25.0) mmol/L ABG O2 Saturation 96.9 (95.0-98.0) % ABG O2 Content 15.3 (15.0-23.0) %vol ABG Base Excess -14.8 mm/L ABG Hemoglobin 11.3 L (12.0-16.0) g/dL ABG Oxyhemoglobin 95.4 % ABG Carboxyhemoglobin 0.8 (0.0-1.6) % ABG Methemoglobin 0.7 % Biju Test Passed O2 Delivery Device Nasal cannula Oxygen Flow Rate 2 L Sodium 143 (140-148) mmol/L Potassium 5.1 (3.6-5.2) mmol/L Chloride 111 H (100-108) mmol/L Carbon Dioxide 12 L (21-32) mmol/L Anion Gap 25.1 H (5.0-14.0) mmol/L BUN 46 H (7-18) mg/dL Creatinine 3.6 H* (0.6-1.0) mg/dL Est Cr Clr Drug Dosing 12.54 mL/min Estimated GFR (MDRD) 13 L (>60) Glucose 101 (74-106) mg/dL Lactic Acid (0.4-2.0) mmol/L Calcium 7.5 L (8.5-10.1) mg/dL Magnesium 2.6 H D (1.8-2.4) mg/dL Total Bilirubin 0.7 (0.2-1.0) mg/dL AST 82 H (15-37) U/L ALT 87 H (12-78) U/L Alkaline Phosphatase 276 H (46-116) U/L Troponin I 0.648 H* (0.000-0.056) ng/mL Total Protein 5.6 L (6.4-8.2) g/dL Albumin 2.0 L (3.4-5.0) g/dL Globulin 3.6 H (2.3-3.5) g/dL Albumin/Globulin Ratio 0.6 L (1.2-2.2) Med Orders - Current: Current Medications Acetaminophen (Tylenol) 650 mg PO Q4H PRN PRN Reason: Pain (Mild 1-3)/fever Albuterol (Proventil Neb Soln) 2.5 mg NEB Q4H PRN PRN Reason: Shortness Of Breath/wheezing Last Admin: 01/09/17 04:06 Dose: 2.5 mg Diphenhydramine HCl (Benadryl) 25 - 50 mg IVPUSH Q6H PRN PRN Reason: Itching Last Admin: 01/09/17 08:01 Dose: 50 mg Enoxaparin Sodium (Lovenox) 30 mg SUBCUT Q24H RADHA Heparin Sodium (Porcine) (Heparin Lock Flush 100 Units/Ml Syringe) 500 units FLUSH ASDIRECTED PRN PRN Reason: IV Use Last Admin: 01/08/17 12:28 Dose: 500 units Norepinephrine Bitartrate 4 mg (/ Sodium Chloride) 250 mls @ 7.5 mls/hr IV TITRATE RADHA; 2 MCG/MIN PRN Reason: Protocol Last Admin: 01/09/17 05:34 Dose: 20 mcg/min, 75 mls/hr Vasopressin 100 units/ Sodium (Chloride) 100 mls @ 0.6 mls/hr IV TITRATE RADHA; 0.01 UNITS/MIN PRN Reason: Protocol Last Titration: 01/08/17 22:06 Dose: 0.04 units/min, 2.4 mls/hr Levofloxacin/Dextrose 500 mg/ (Premix) 100 mls @ 100 mls/hr IV Q48H RADHA Piperacillin Sod/Tazobactam (Sod 2.25 gm/ Sodium Chloride) 50 mls @ 100 mls/hr IV Q8H RADHA Last Admin: 01/09/17 05:28 Dose: 100 mls/hr Heparin Sodium (Porcine) 5,000 (units/ Sodium Chloride) 501 mls @ 5 mls/hr IV ASDIRECTED RADHA Last Admin: 01/08/17 13:08 Dose: 5 mls/hr Lactated Ringer's (Ringers, Lactated) 1,000 mls @ 100 mls/hr IV ASDIRECTED RADHA Last Admin: 01/08/17 23:11 Dose: 100 mls/hr Lorazepam (Ativan) 0.5 mg IVPUSH Q2H PRN PRN Reason: Anxiety Morphine Sulfate (Morphine) 2 - 4 mg IVPUSH Q1H PRN PRN Reason: Pain Last Admin: 01/09/17 03:39 Dose: 2 mg Ondansetron HCl (Zofran) 4 mg IV Q4H PRN PRN Reason: Nausea/Vomiting Oxycodone HCl (Oxycodone) 5 mg PO Q4H PRN PRN Reason: Pain (moderate 4-6) Last Admin: 01/08/17 14:05 Dose: 5 mg Sodium Chloride (Saline Flush) 10 ml FLUSH ASDIRECTED PRN PRN Reason: Keep Vein Open Vancomycin HCl (Vancomycin) 1 gm IV .PHARMACY TO DOSE [facility] Discontinued Medications Enoxaparin Sodium (Lovenox) 30 mg SUBCUT Q24H [facility] Last Admin: 01/08/17 02:54 Dose: 30 mg Enoxaparin Sodium (Lovenox) 30 mg SUBCUT Q24H [facility] Sodium Chloride (Normal Saline) 1,000 mls @ 999 mls/hr IV ASDIRECTED RADHA Last Admin: 01/07/17 21:27 Dose: 999 mls/hr Sodium Chloride (Normal Saline) 1,000 mls @ 500 mls/hr IV ASDIRECTED RADHA Last Infusion: 01/07/17 23:00 Dose: 999 mls/hr Dopamine HCl/Dextrose (Dopamine In D5w 400 Mg/250 Ml) 400 mg in 250 mls @ 12.145 mls/hr IV TITRATE RADHA; 3 MCG/KG/MIN PRN Reason: Protocol Last Titration: 01/08/17 00:30 Dose: 5 mcg/kg/min, 20.242 mls/hr Sodium Chloride (Normal Saline) 1,000 mls @ 999 mls/hr IV ASDIRECTED RADHA Last Admin: 01/07/17 23:10 Dose: 999 mls/hr Piperacillin Sod/Tazobactam (Sod 3.375 gm/ Sodium Chloride) 50 mls @ 100 mls/ hr IV Q6H RADHA Last Admin: 01/08/17 00:05 Dose: 100 mls/hr Sodium Chloride (Normal Saline) Confirm Administered Dose 50 mls @ as directed .ROUTE .STK-MED ONE Stop: 01/07/17 23:57 Last Admin: 01/08/17 08:04 Dose: Not Given Sodium Chloride (Normal Saline) 1,000 mls @ 999 mls/hr IV ASDIRECTED RADHA Last Admin: 01/08/17 01:05 Dose: 999 mls/hr Levofloxacin/Dextrose 500 mg/ (Premix) 100 mls @ 100 mls/hr IV ONETIME ONE Stop: 01/08/17 01:14 Last Admin: 01/08/17 01:15 Dose: 100 mls/hr Levofloxacin/Dextrose 250 mg/ (Premix) 50 mls @ 50 mls/hr IV Q48H RADHA Vancomycin HCl 1.5 gm/ Sodium (Chloride) 250 mls @ 166.667 mls/hr IV ONETIME ONE Stop: 01/08/17 02:29 Last Admin: 01/08/17 02:23 Dose: 166.667 mls/hr Lactated Ringer's (Ringers, Lactated) 1,000 mls @ 500 mls/hr IV ASDIRECTED RADHA Stop: 01/08/17 04:50 Last Admin: 01/08/17 03:57 Dose: 999 mls/hr Lactated Ringer's (Ringers, Lactated) 1,000 mls @ 500 mls/hr IV ASDIRECTED RADHA Last Admin: 01/08/17 13:24 Dose: 500 mls/hr Piperacillin Sod/Tazobactam (Sod 2.25 gm/ Sodium Chloride) 50 mls @ 100 mls/hr IV Q6H RADHA Last Admin: 01/08/17 05:34 Dose: 100 mls/hr Sodium Chloride (Normal Saline) Confirm Administered Dose 250 mls @ as directed .ROUTE .STK-MED ONE Stop: 01/08/17 01:12 Last Admin: 01/08/17 02:42 Dose: Not Given Norepinephrine Bitartrate 4 mg (/ Dextrose/Water) 250 mls @ 7.5 mls/hr IV TITRATE RADHA; 2 MCG/MIN PRN Reason: Protocol Potassium Chloride (Kcl 20 Meq In Water 100 Ml) 100 mls @ 50 mls/hr IV Q2H [facility]HA Stop: 01/08/17 06:59 Last Admin: 01/08/17 05:56 Dose: 50 mls/hr Lidocaine HCl (Xylocaine-Mpf 1%) Confirm Administered Dose 2 mls @ as directed .ROUTE .STK-MED ONE Stop: 01/08/17 04:23 Last Admin: 01/08/17 04:40 Dose: 20 ml Sodium Chloride (Normal Saline) Confirm Administered Dose 100 mls @ as directed .ROUTE .STK-MED ONE Stop: 01/08/17 04:33 Last Admin: 01/08/17 04:58 Dose: Not Given Magnesium Sulfate 2 gm/ Premix 50 mls @ 25 mls/hr IV Q6H [facility] Stop: 01/09/17 05:59 Last Admin: 01/09/17 03:30 Dose: 25 mls/hr Calcium Gluconate 2 gm/ Sodium (Chloride) 120 mls @ 100 mls/hr IV ONETIME ONE Stop: 01/08/17 13:41 Last Admin: 01/08/17 12:54 Dose: 100 mls/hr Lactated Ringer's (Ringers, Lactated) 500 mls @ 500 mls/hr IV ASDIRECTED [facility] Last Admin: 01/08/17 20:53 Dose: 500 mls/hr Lidocaine HCl (Xylocaine 2% Jelly) Confirm Administered Dose 10 ml .ROUTE .STK- MED ONE Stop: 01/07/17 23:38 Last Admin: 01/07/17 23:52 Dose: 10 ml Lidocaine HCl (Xylocaine-Mpf 1%) Confirm Administered Dose 5 ml .ROUTE .STK-MED ONE Stop: 01/08/17 04:31 Last Admin: 01/08/17 04:50 Dose: Not Given Lidocaine HCl (Xylocaine 1%) 2 ml INJECT ONETIME ONE Stop: 01/08/17 04:59 Last Admin: 01/08/17 05:57 Dose: 2 ml Potassium Chloride (Klor-Con M20) 40 meq PO ONETIME ONE Stop: 01/08/17 02:02 Last Admin: 01/08/17 02:55 Dose: 40 meq Vasopressin (Vasopressin) Confirm Administered Dose 100 units .ROUTE .STK-MED ONE Stop: 01/08/17 04:33 Last Admin: 01/08/17 04:58 Dose: Not Given *Q Meaningful Use (DIS) - VTE *Q VTE Criteria *Q: - Stroke *Q Stroke Criteria *Q: - AMI *Q AMI Criteria *Q:
[2017-01-09] MEDS ORDERED: Enoxaparin 30 MG/0.3 ML Syringe SUBCUT SCH (09:00)
[2017-01-09 09:55] VITALS: BP 101/65
--- NOTE | 2017-01-09 10:21 | CR ---
Chest 1V Frontal HISTORY: Shortness of breath. Comparison: Chest radiograph 2009. FINDINGS: Cardiac size borderline enlarged. Limited inspiration. The pulmonary vessels are normal. T he lungs are clear. IMPRESSION: Negative AP chest.
--- NOTE | 2017-01-09 10:28 | CR ---
Chest 1V Frontal HISTORY: Central line placement COMPARISON: Chest x-ray 01/08/2017. FINDINGS: Left-sided central line. Distal tip overlies superior vena cava appears in good position. No pneumothorax. No dense focal infiltrate.
--- NOTE | 2017-01-09 13:44 | OR ---
DATE OF PROCEDURE: 01/09/2017 PREOPERATIVE DIAGNOSIS: Indication for central venous access. POSTOPERATIVE DIAGNOSIS: Indication for central venous access. PROCEDURE: Insertion of left subclavian vein triple-lumen catheter ([id number]). ANESTHESIA: Local. INDICATION FOR PROCEDURE: This 66-year-old admitted with severe sepsis initially septic shock who is now requiring a large amount of IV fluids and different types of fluids. Given this, a central line is requested per Dr. Bunch. Potential risks of the procedure including bleeding, pneumothorax, and infection were reviewed with the patient and she wishes to proceed. DETAILS OF PROCEDURE: The patient was placed in the supine position in the ICU. The upper chest and neck areas were prepped and draped. The left subclavian area was anesthetized with 1% lidocaine mixed with Marcaine. The left subclavian vein was cannulated. A guidewire was passed. Over the guidewire, triple-lumen catheter was positioned. Good in and outflow were noted and the ports were flushed with heparinized saline and sutured skin with some 3-0 Vicryl stitch and dressing applied. Chest x-ray showed no complications with the tip being in the superior vena cava and right atrial junction area. The patient tolerated the procedure well. Lamin Kincaid MD /[id number]
[2017-01-09] MEDS ORDERED: Levofloxacin/Dextrose 5%-Water 500 MG in Premix Bag 1 BAG IV SCH (22:00)
[2017-01-10] MEDS ORDERED: Levofloxacin/Dextrose 5%-Water 250 MG in Premix Bag 1 BAG IV SCH ×2
== END 2017-01-09 09:40 | DRG 871 ==
LOC: JP.ED 19:33 → JP.ICU 01-08 00:22
PROVIDERS: ADMIT Hospitalist; ATTEND Internal Medicine
PROC: 02HV33Z Insertion of Infusion Device into Superior Vena Cava, Percutaneous Approach (ICD-10-PCS; principal; 2017-01-09)
DX: A41.9 Sepsis, unspecified organism (principal); R65.21 Severe sepsis with septic shock; N39.0 Urinary tract infection, site not specified; N17.9 Acute kidney failure, unspecified; E87.4 Mixed disorder of acid-base balance; N13.2 Hydronephrosis with renal and ureteral calculous obstruction; Z68.41 Body mass index [BMI] 40.0-44.9, adult; R74.8 Abnormal levels of other serum enzymes; R11.2 Nausea with vomiting, unspecified; R19.7 Diarrhea, unspecified; R10.9 Unspecified abdominal pain; I95.9 Hypotension, unspecified; E66.01 Morbid (severe) obesity due to excess calories; Z88.7 Allergy status to serum and vaccine
CPT/HCPCS: 36415; 36600; 51702; 71010 ×2; 74176; 80053; 82803; 83605; 84484; 85025; 86140; 87040 ×2; 93005 ×2; 96361; 96365; 96366; 96368; 99285; J1265; J2543; J7040 ×4; J7050; 80048; 81001; 83735; 87077; 87086; 87186; 93010; 94660; A9270-GY; J0610; J1200; J1642; J1644; J1650; J1956; J2270; J3370; J3475; J3480; J7030; J7120

== ENCOUNTER 2017-07-04 10:30 | Inpatient (IN) | payer MEDICARE, OTHER ==
[2017-07-05] MEDS ORDERED: Gabapentin 300 MG Cap PO ONE (08:00)
[2017-07-05] MEDS ORDERED: Scopolamine 1.5 MG Transdermal Patch TOP SCH (08:00)
[2017-07-05] MEDS ORDERED: ceFAZolin 2 GM in Premix Bag 1 BAG IV ONE (08:30)
[2017-07-05] MEDS ORDERED: ceFAZolin 2 GM in Sodium Chloride 0.9% 50 ML IV ONE (08:30)
[2017-07-05] MEDS ORDERED: Rocuronium 50 MG/5 ML Vial ONE (09:11)
[2017-07-05] MEDS ORDERED: Ondansetron 4 MG/2 ML SDV ONE (09:11)
[2017-07-05] MEDS ORDERED: Propofol 200 MG/20 ML SDV ONE (09:11)
[2017-07-05] MEDS ORDERED: Dexamethasone 4 MG/ML SDV ONE (09:11)
[2017-07-05] MEDS ORDERED: Midazolam 1 MG/ML 2 ML SDV ONE (09:11)
[2017-07-05] MEDS ORDERED: Neostigmine Methylsulfate 1 MG/ML 5 ML Syringe ONE (09:11)
[2017-07-05] MEDS: Lactated Ringers 1,000 ML IV SCH ×2 (09:11→21:10)
[2017-07-05] MEDS ORDERED: Glycopyrrolate 0.2 MG/ML 5 ML MDV ONE (09:11)
[2017-07-05] MEDS ORDERED: Succinylcholine 200 MG/10 ML MDV ONE (09:11)
[2017-07-05] MEDS ORDERED: Ketamine 500 MG/5 ML MDV IV ONE (10:00)
[2017-07-05] MEDS ORDERED: Ropivacaine 49.25 ML, Ketorolac 30 MG, EPINEPHrine 0.5 MG, cloNIDine 80 MCG, Sodium Chl... INJECT ONE ×5 (10:00)
[2017-07-05] MEDS ORDERED: Thrombin (Bovine) 5,000 Unit Kit ONE (11:12)
[2017-07-05] MEDS ORDERED: Povidone-Iodine 10% Soln 118.25 ML Bottle ONE (11:12)
[2017-07-05] MEDS: Tranexamic Acid 1,000 MG in Sodium Chloride 0.9% 50 ML IV SCH ×2 (12:16→15:14)
[2017-07-05] MEDS ORDERED: ePHEDrine 50 MG/ML SDV ONE (12:57)
[2017-07-05] MEDS ORDERED: fentaNYL 100 MCG/2 ML SDV ONE (13:39)
[2017-07-05] MEDS ORDERED: Lactated Ringers 1,000 ML ONE (13:50)
[2017-07-05] MEDS ORDERED: Zolpidem 5 MG Tab PO PRN (15:08)
[2017-07-05] MEDS ORDERED: Sennosides 8.6 MG Tab PO PRN (15:08)
[2017-07-05] MEDS ORDERED: Sodium Chloride 0.9% 10 ML Syringe FLUSH PRN (15:08)
[2017-07-05] MEDS ORDERED: Diazepam 5 MG Tab PO PRN (15:08)
[2017-07-05] MEDS ORDERED: Naloxone 0.4 MG/ML SDV IVPUSH PRN (15:08)
[2017-07-05] MEDS ORDERED: Magnesium Hydroxide 400 MG/5 ML Susp 30 ML Cup PO PRN (15:08)
[2017-07-05] MEDS ORDERED: Aluminum Hydroxide/Magnesium Hydroxide/Simethicone Susp 30 ML Cup PO PRN (15:08)
[2017-07-05] MEDS ORDERED: Ondansetron 4 MG/2 ML SDV IVPUSH PRN (15:08)
[2017-07-05] MEDS ORDERED: ceFAZolin 2 GM in Sodium Chloride 0.9% 50 ML IV SCH (15:15)
[2017-07-05] MEDS ORDERED: hydrOXYzine HCl 100 MG/2 ML SDV IM ONE (15:22)
[2017-07-05] MEDS ORDERED: Acetaminophen 1,000 MG in Premix Bag 1 BAG IV ONE (15:45)
[2017-07-05] MEDS: HYDROmorphone 1 MG/ML Syringe IVPUSH PRN ×2 (16:09→22:09)
[2017-07-05] MEDS: ceFAZolin 2 GM in Sodium Chloride 0.9% 50 ML IV SCH (18:14)
[2017-07-05] MEDS: VERIFY SCOPOLAMINE PATCH TOP SCH (18:52)
--- NOTE | 2017-07-05 19:29 | PCM.CONS ---
H&P History of Present Illness - General Date of Service: 07/05/17 Admit Problem/Dx: Admission Diagnosis/Problem Admission Diagnosis/Problem Lumbar spinal fusion Source of Information: Patient, Old Records, Provider, RN Notes Reviewed History Limitations: Reports: No Limitations - History of Present Illness Initial Comments - Free Text/Narative: Ms. Han is a 66-year-old woman who I been asked to see by Dr. Fermín Kincaid or assistance in medical management during the postoperative period. She underwent lumbar spinal surgery earlier today by Dr. Kincaid and is doing well during the initial postoperative period. Pain control has been adequate and she denies nausea, vomiting, chest pain, or shortness of breath. Bilateral Lower Back Pain Score (Numeric/FACES): 9 - Related Data Allergies/Adverse Reactions: Allergies Allergy/AdvReac Type Severity Reaction Status Date / Time flu vaccine Allergy Cannot Uncoded 01/07/17 21:43 Remember Home Medications: Home Meds Cetirizine [ZyrTEC] 10 mg PO DAILY 02/20/17 [History] Fluticasone Propionate [Flonase] 2 sprays NS DAILY 02/20/17 [History] Gabapentin [Neurontin] 100 mg PO TID 02/20/17 [History] Naproxen Sodium [Aleve] 1 tab PO BID PRN 04/27/17 [History] Aspirin [Halfprin] 81 mg PO DAILY 07/05/17 [History] Past Medical History HEENT History: Reports: Hard of Hearing, Sinusitis Other HEENT History: wears glasses and bilat hearing aides Gastrointestinal History: Reports: Colon Polyp Genitourinary History: Reports: None, Renal Calculus 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: Reports: Musculoskeletal History: Reports: Arthritis, Back Pain, Chronic Neurological History: Reports: Other (See Below) Other Neuro History: 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 Endocrine/Metabolic History: Reports: Obesity/BMI 30+ Hematologic History: Reports: Anemia, Blood Transfusion(s), Iron Deficiency - Infectious Disease History Infectious Disease History: Reports: Chicken Pox, Measles, Mononucleosis, Mumps , Rubella - Past Surgical History HEENT Surgical History: Reports: Tonsillectomy GI Surgical History: Reports: Cholecystectomy, Colonoscopy, Polypectomy Female Surgical History: Reports: Hysterectomy, Lithotripsy/ESWL Endocrine Surgical History: Reports: None Neurological Surgical History: Reports: None Musculoskeletal Surgical History: Reports: Other (See Below) Other Musculoskeletal Surgeries/Procedures:: toe surgery Dermatological Surgical History: Reports: None Social & Family History - Family History Cardiac: Reports: [place] Musculoskeletal: Reports: Arthritis Oncologic: Reports: Lung - Tobacco Use Smoking Status *Q: Never Smoker Second Hand Smoke Exposure: No - Caffeine Use Caffeine Use: Reports: Tea - Recreational Drug Use Recreational Drug Use: No H&P Review of Systems - Review of Systems: Review Of Systems: See Below Pulmonary: Reports: No Symptoms Cardiovascular: Reports: No Symptoms Gastrointestinal: Reports: No Symptoms Genitourinary: Reports: No Symptoms Musculoskeletal: Reports: Back Pain Skin: Reports: No Symptoms Exam - Exam Exam: See Below - Vital Signs Vital Signs: Last Vital Signs Temp 97.7 F 07/05/17 19:00 Pulse 86 07/05/17 19:00 Resp 16 07/05/17 19:00 BP 120/69 07/05/17 19:00 Pulse Ox 96 07/05/17 19:00 Weight: 226 lb - Exam Quality Assessment: DVT Prophylaxis General: Alert, Oriented, Cooperative, Mild Distress Neck: Supple, Trachea Midline, +2 Carotid Pulse wo Bruit Lungs: Clear to Auscultation, Normal Respiratory Effort Cardiovascular: Regular Rate, Regular Rhythm, Normal S1, Normal S2 GI/Abdominal Exam: Normal Bowel Sounds, Soft, Non-Tender, No Organomegaly, No Distention Extremities: Non-Tender, No Pedal Edema Skin: Warm, Dry, Intact - Patient Data Lab Results Last 24 hrs: Laboratory Results - last 24 hr 07/05/17 Range/Units 08:04 Blood Type A POSITIVE Gel Antibody Screen Negative Consult PN Assessment/Plan Procedures: Procedures ASSAY OF LACTIC ACID (01/08/17) ASSAY OF MAGNESIUM (01/08/17) ASSAY OF TROPONIN QUANT (01/08/17) BLOOD CULTURE FOR BACTERIA (01/08/17) BLOOD GASES ANY COMBINATION (01/08/17) C-REACTIVE PROTEIN (01/08/17) CHEST X-RAY 1 VIEW FRONTAL (01/08/17) COMP SCREEN MAMMOGRAM ADD-ON (08/18/16) COMPLETE CBC AUTOMATED (06/22/17) COMPLETE CBC W/AUTO DIFF WBC (01/08/17) COMPREHEN METABOLIC PANEL (06/22/17) CT ABD & PELVIS W/O CONTRAST (01/08/17) CULTURE OTHR SPECIMN AEROBIC (06/22/17) ELECTROCARDIOGRAM TRACING (06/22/17) EMERGENCY DEPT VISIT (01/08/17) EMERGENCY DEPT VISIT (09/28/15) HOT OR COLD PACKS THERAPY (01/04/17) HYDRATE IV INFUSION ADD-ON (01/08/17) INSERT TEMP BLADDER CATH (01/08/17) MANUAL THERAPY 1/> REGIONS (01/04/17) METABOLIC PANEL TOTAL CA (01/08/17) MRI JNT OF LWR EXTRE W/O DYE (02/20/17) MRI LUMBAR SPINE W/O DYE (02/20/17) OFFICE/OUTPATIENT VISIT EST (04/27/17) OFFICE/OUTPATIENT VISIT NEW (02/20/17) POS AIRWAY PRESSURE CPAP (01/08/17) PT EVAL LOW COMPLEX 20 MIN (01/04/17) PT EVALUATION (12/11/14) ROUTINE VENIPUNCTURE (06/22/17) THER/DIAG CONCURRENT INF (01/08/17) THER/PROPH/DIAG IV INF ADDON (01/08/17) THER/PROPH/DIAG IV INF INIT (01/08/17) THERAPEUTIC EXERCISES (12/18/14) ULTRASOUND THERAPY (12/18/14) URINALYSIS AUTO W/O SCOPE (06/22/17) URINALYSIS AUTO W/SCOPE (01/08/17) URINE CULTURE/COLONY COUNT (01/08/17) WITHDRAWAL OF ARTERIAL BLOOD (01/08/17) X-RAY EXAM L-2 SPINE 4/>VWS (02/20/17) Problem List Initiated/Reviewed/Updated: Yes Plan: ASSESSMENT AND RECOMMENDATIONS STATUS POST LUMBAR SPINAL SURGERY-stable and doing well during the initial postoperative period -Postoperative care per Dr. Kincaid HISTORY OF COMPLICATED URINARY TRACT INFECTION-secondary to nephrolithiasis, resulting in prolonged hospitalization for management of sepsis and respiratory failure Requesting Provider: BS Date Consult Requested: 07/05/17 Reason for Consult: Postoperative medical management Patient History Reviewed: Yes
--- NOTE | 2017-07-05 20:06 | OR ---
DATE OF PROCEDURE: 07/05/2017 PREOPERATIVE DIAGNOSES: 1. L4-L5 stenosis. 2. L4-L5 spondylolisthesis. 3. L4-L5 radiculopathy. POSTOPERATIVE DIAGNOSES: 1. L4-L5 stenosis. 2. L4-L5 spondylolisthesis. 3. L4-L5 radiculopathy. PROCEDURES: 1. L4-L5 transforaminal lumbar interbody fusion. 2. Insertion of interbody device at L4-L5. 3. Segmental instrumentation, L4-L5. 4. Laminectomy required in addition decompression for interbody placement at L4-L5. 5. Use of intraoperative fluoroscopy. 6. Morbid obesity which required additional time. DIRECTOR OF CHANNEL MARKETING: Shanta Broderick NP. ANESTHESIA: General endotracheal intubation. FLUID: Lactated Ringer solution. ESTIMATED BLOOD LOSS: 300 mL. COMPLICATIONS: None. SPECIMEN: None. DISCHARGE DISPOSITION: Stable to PACU. INDICATIONS: The patient was seen preoperatively in the clinic over several months. She had failed nonoperative treatment. Preoperative imaging confirmed the above-mentioned diagnosis. Risks and benefits of the procedure were explained to the patient and informed consent was obtained. DETAILS OF PROCEDURE: The patient was seen preoperatively by myself and the Anesthesia Staff in the preoperative holding area where the operative site was marked. She was brought to the operative suite by the anesthesia staff where general anesthesia was administered. Neuromonitoring leads were placed. A sterile Mcconnell catheter was placed. The operative fluoroscopy unit was then sterilely draped. She was placed into a prone position on a Jose Eduardo table. All extremities found to be well padded. The eyes were under no pressure. The bed was flexed. The patient was then prepped and draped in a sterile manner. Time-out was called identifying the correct patient, correct procedure, the correct site, and antibiotics had begun within appropriate period of time. The lateral fluoroscopy unit was then used to identify the L4-L5 interspace. An incision was made over the L4 and L5 spinous process and carried down to the deep fascia. Cerebellar was used for initial retraction. Bleeding during the case was controlled with Bovie electrocautery and an Aquamantys 5.0 unit. Due to the patient's obesity and bleeding, a great deal of extra time was required for this case. I then went through the fascia over the L4 spinous processes their respective lamina, pars, facets, and transverse processes at L4 and L5. I then inserted 100 mm retractors with the Versa-Trac retractor and then cleared any extra soft tissue off. We then placed our left pedicle screws followed by right pedicle screws. I confirmed good placement on the left with fluoroscopy followed by right. We then tested our screws which all tested within normal limits. We then concentrated our laminectomy which performed using a drill, [place] rongeurs, and a long ball to protect the dura. Complete facetectomy at L4- L5 on the right was performed. The interspace was identified using a [place] #4, bipolar electrocautery and Aquamantys 5.0 were used over the epidural space to control any bleeding. I then protected the dura with a dural nerve retractor and then entered the interspace with sequential sharan from 7 to 10 after placing distraction on the contralateral screws at L4 and L5. I then took my time to remove any disk material using a straight upgoing and downgoing curette and then straight and upgoing pituitaries. I then inserted my interbody device. I then placed a 35 mm rebecca on the left and then set screws on the right and then reduced those with the interbody collapsed and then I got a slight amount of reduction and then I elevated my interbody under direct fluoroscopy and then placed the right set screws and rods and then torqued into specks on the right. Please note, I did add a bone graft from the laminectomy site in the interspace as well as on the posterolateral gutter on the left. We then copiously irrigated with 3 L of Betadine infused irrigation and then closed with #2 Stratafix, #1 Stratafix, 3-0 Stratafix and then glue and Steri-Strips. Neuromonitoring was normal throughout the case. The patient was then transferred to her hospital bed in supine position and transferred to the PACU in stable condition. Guanaco Kincaid DO /[id number]
[2017-07-05] MEDS ORDERED: Lactated Ringers 500 ML IV SCH (22:00)
[2017-07-05] MEDS: Gabapentin 100 MG Cap PO SCH (23:34)
[2017-07-05] MEDS ORDERED: Lactated Ringers 1,000 ML IV SCH (23:59)
[2017-07-06] MEDS: ceFAZolin 2 GM in Sodium Chloride 0.9% 50 ML IV SCH ×2 (02:50→10:15)
[2017-07-06] MEDS: oxyCODONE 5 MG Tab PO PRN ×3 (07:35→18:25)
[2017-07-06] MEDS: Cetirizine 10 MG Tab PO SCH (08:47)
[2017-07-06] MEDS: VERIFY SCOPOLAMINE PATCH TOP SCH (08:48)
[2017-07-06] MEDS: Gabapentin 100 MG Cap PO SCH ×3 (08:48→21:01)
--- NOTE | 2017-07-06 10:23 | PCM.PN ---
- General Info Date of Service: 07/06/17 Admission Dx/Problem (Free Text): Patient is doing very well today. She is status postop 1 day of a lumbar fusion. Patient is ambulating without any difficulties. She does use to assist with ambulation and a walker at this time. She is continue to work with PT for strengthening. Patient is an oral pain medication at this time. Functional Status: Reports: Pain Controlled, Tolerating Diet, Ambulating, Urinating - Patient Data Vitals - Most Recent: Last Vital Signs Temp 37.4 C 07/06/17 07:23 Pulse 97 07/06/17 07:23 Resp 16 07/06/17 07:23 BP 100/65 07/06/17 07:23 Pulse Ox 96 07/06/17 07:35 Weight - Most Recent: 226 lb I&O - Last 24 Hours: Intake & Output 07/05/17 07/06/17 07/06/17 22:59 06:59 14:59 Intake Total 1057 6816 537 Output Total 336 208 275 Balance 721 4428 262 Lab Results Last 24 Hours: Laboratory Results - last 24 hr 07/06/17 07/06/17 Range/Units 05:40 05:40 WBC 20.4 H (4.5-11.0) K/uL RBC 3.43 (3.30-5.50) M/uL Hgb 9.7 L D (12.0-15.0) g/dL Hct 30.2 L (36.0-48.0) % MCV 88 (80-98) fL MCH 28 (27-31) pg MCHC 32 (32-36) % Plt Count 229 (150-400) K/uL Neut % (Auto) 87 H (36-66) % Lymph % (Auto) 6 L (24-44) % Rich % (Auto) 7 H (2-6) % Eos % (Auto) 0 L (2-4) % Baso % (Auto) 0 (0-1) % Sodium 140 (140-148) mmol/L Potassium 4.5 (3.6-5.2) mmol/L Chloride 106 (100-108) mmol/L Carbon Dioxide 26 (21-32) mmol/L Anion Gap 8.1 (5.0-14.0) mmol/L BUN 16 (7-18) mg/dL Creatinine 1.3 H (0.6-1.0) mg/dL Est Cr Clr Drug Dosing 34.74 mL/min Estimated GFR (MDRD) 41 L (>60) Glucose 132 H (74-106) mg/dL Calcium 8.6 (8.5-10.1) mg/dL Med Orders - Current: Current Medications Al Hydroxide/Mg Hydroxide (Mag-Al Plus) 30 ml PO Q4H PRN PRN Reason: Indigestion Cetirizine HCl (Zyrtec) 10 mg PO DAILY [facility] Last Admin: 07/06/17 08:47 Dose: 10 mg Diazepam (Valium.) 5 mg PO Q6H PRN PRN Reason: Spasms Gabapentin (Neurontin) 100 mg PO TID [facility] Last Admin: 07/06/17 08:48 Dose: 100 mg Hydromorphone HCl (Dilaudid) 1 mg IVPUSH Q2H PRN PRN Reason: Pain Last Admin: 07/05/17 22:09 Dose: 1 mg Cefazolin Sodium 2 gm/ Sodium (Chloride) 50 mls @ 100 mls/hr IV Q8H [facility] Stop: 07/06/17 10:29 Last Admin: 07/06/17 10:15 Dose: 100 mls/hr Lactated Ringer's (Ringers, Lactated) 1,000 mls @ 125 mls/hr IV ASDIRECTED [facility] Last Admin: 07/06/17 04:02 Dose: 125 mls/hr Magnesium Hydroxide (Milk Of Magnesia) 30 ml PO BID PRN PRN Reason: Constipation Naloxone HCl (Narcan) 0.2 mg IVPUSH ONETIME PRN PRN Reason: Oversedation Verify Scopolamine (Patch) 0 each TOP DAILY [facility] Last Admin: 07/06/17 08:48 Dose: 1 each Ondansetron HCl (Zofran) 8 mg IVPUSH Q4H PRN PRN Reason: Nausea/Vomiting Oxycodone HCl (Oxycodone) 5 - 10 mg PO Q4H PRN PRN Reason: Pain Last Admin: 07/06/17 07:35 Dose: 5 mg Scopolamine (Transderm-Scop) 1.5 mg TOP Q72H [facility] Stop: 07/08/17 06:00 Last Admin: 07/05/17 07:55 Dose: 1.5 mg Senna (Senna) 8.6 mg PO BID PRN PRN Reason: Constipation Sodium Chloride (Saline Flush) 10 ml FLUSH ASDIRECTED PRN PRN Reason: Keep Vein Open Zolpidem Tartrate (Ambien) 5 mg PO BEDTIME PRN PRN Reason: Sleep Discontinued Medications Ropivacaine 49.25 ml/Ketorolac Tromethamine 30 mg/Epinephrine HCl 0.5 mg/ Clonidine HCl 80 mcg/ Sodium Chloride 48.45 ml 0 ml INJECT ONETIME ONE Stop: 07/05/17 10:01 Last Admin: 07/05/17 13:18 Dose: 100 ml Dexamethasone (Dexamethasone) Confirm Administered Dose 4 mg .ROUTE .STK-MED ONE Stop: 07/05/17 09:12 Ephedrine Sulfate (Ephedrine Sulfate) Confirm Administered Dose 50 mg .ROUTE .STK-MED ONE Stop: 07/05/17 12:58 Fentanyl (Sublimaze) Confirm Administered Dose 100 mcg .ROUTE .STK-MED ONE Stop: 07/05/17 13:40 Fentanyl Citrate (Fentanyl) Confirm Administered Dose 500 mcg .ROUTE .STK-MED ONE Stop: 07/05/17 09:12 Gabapentin (Neurontin) 300 mg PO ONETIME ONE Stop: 07/05/17 08:01 Last Admin: 07/05/17 07:54 Dose: 300 mg Glycopyrrolate (Robinul) Confirm Administered Dose 1 mg .ROUTE .STK-MED ONE Stop: 07/05/17 09:12 Hydroxyzine HCl (Vistaril) 100 mg IM ONETIME ONE Stop: 07/05/17 15:23 Last Admin: 07/05/17 15:25 Dose: 100 mg Lactated Ringer's (Ringers, Lactated) 1,000 mls @ 0 mls/hr IV ASDIRECTED RADHA PRN Reason: KVO Last Admin: 07/05/17 21:10 Dose: 25 mls/hr Cefazolin Sodium 2 gm/ Sodium (Chloride) 50 mls @ 100 mls/hr IV ONETIME ONE Stop: 07/05/17 08:59 Last Admin: 07/05/17 12:16 Dose: 100 mls/hr Tranexamic Acid 1,000 mg/ (Sodium Chloride) 60 mls @ 240 mls/hr IV Q3H [facility] Stop: 07/05/17 13:14 Last Admin: 07/05/17 15:14 Dose: 240 mls/hr Ketamine HCl 100 mg/ Sodium (Chloride) 100 mls @ 16 mls/hr IV ASDIRECTED [facility] Stop: 07/05/17 12:00 Lactated Ringer's (Ringers, Lactated) Confirm Administered Dose 1,000 mls @ as directed .ROUTE .STK-MED ONE Stop: 07/05/17 13:51 Cefazolin Sodium 2 gm/ Sodium (Chloride) 50 mls @ 100 mls/hr IV Q8H [facility] Stop: 07/06/17 07:44 Last Admin: 07/05/17 18:53 Dose: Not Given Acetaminophen 1,000 mg/ Premix 100 mls @ 400 mls/hr IV ONETIME ONE Stop: 07/05/17 15:59 Last Admin: 07/05/17 15:36 Dose: 400 mls/hr Lactated Ringer's (Ringers, Lactated) 500 mls @ 250 mls/hr IV BOLUS [facility] Last Admin: 07/05/17 22:09 Dose: 250 mls/hr Ketamine HCl (Ketalar) 26 mg IV ONETIME ONE Stop: 07/05/17 10:01 Last Admin: 07/05/17 18:52 Dose: Not Given Lidocaine HCl (Xylocaine-Mpf 1%) Confirm Administered Dose 5 ml .ROUTE .STK-MED ONE Stop: 07/05/17 09:02 Last Admin: 07/05/17 18:52 Dose: Not Given Lidocaine HCl (Xylocaine-Mpf 1%) 0.5 ml INJECT ONETIME ONE Stop: 07/05/17 09:17 Last Admin: 07/05/17 18:52 Dose: Not Given Midazolam HCl (Versed 1 Mg/Ml) Confirm Administered Dose 2 mg .ROUTE .STK-MED ONE Stop: 07/05/17 09:12 Neostigmine Methylsulfate (Neostigmine) Confirm Administered Dose 5 mg .ROUTE .STK-MED ONE Stop: 07/05/17 09:12 Ondansetron HCl (Zofran) Confirm Administered Dose 4 mg .ROUTE .STK-MED ONE Stop: 07/05/17 09:12 Povidone Iodine (Betadine 10% Soln) Confirm Administered Dose 1 ml .ROUTE .STK- MED ONE Stop: 07/05/17 11:13 Last Admin: 07/05/17 13:05 Dose: 40 ml Propofol (Diprivan 20 Ml) Confirm Administered Dose 200 mg .ROUTE .STK-MED ONE Stop: 07/05/17 09:12 Rocuronium [place] (Zemuron) Confirm Administered Dose 50 mg .ROUTE .STK-MED ONE Stop: 07/05/17 09:12 Succinylcholine Chloride (Quelicin) Confirm Administered Dose 200 mg .ROUTE .STK -MED ONE Stop: 07/05/17 09:12 Thrombin (Thrombin-Jmi) Confirm Administered Dose 15,000 unit .ROUTE .STK-MED ONE Stop: 07/05/17 11:13 Last Admin: 07/05/17 13:06 Dose: 10,000 unit - Exam General: Alert, Oriented Extremities: Normal Inspection, Normal Range of Motion, Non-Tender, No Pedal Edema, Normal Capillary Refill Peripheral Pulses: 2+: Dorsalis Pedis (L), Dorsalis Pedis (R) Skin: Warm, Dry, Intact Wound/Incisions: Healing Well, Dressing Dry and Intact, No Drainage Neurological: No New Focal Deficit, Normal Gait, Strength Equal Bilateral, Reflexes Equal Bilateral Psy/Mental Status: Alert - Problem List Review Problem List Initiated/Reviewed/Updated: Yes - My Orders Last 24 Hours: My Active Orders 07/05/17 15:08 Patient Status [ADT] Routine Ambulate [RC] QID Head of Bed Elevation [RC] ASDIRECTED Immobilizer [RC] ASDIRECTED Intake and Output [RC] QSHIFT Neurovascular Check [RC] Q4HR Notify Provider Intake and Out [RC] ASDIRECTED Notify Provider Laboratory Res [RC] ASDIRECTED Notify Provider Status Change [RC] ASDIRECTED Notify Provider Vital Signs [RC] ASDIRECTED Oxygen Therapy [RC] PRN Pulse Oximetry [RC] CONTINUOUS RT Incentive Spirometry [RC] ASDIRECTED Turn, Cough, Deep Breathe [RC] .PRN Up to Chair [RC] QID Vital Signs [RC] Q12H Wound Care [RC] Q12H Consult to Physician [CONS] Routine OT Evaluation and Treatment [CONS] Routine PT Evaluation and Treatment [CONS] Routine Alum Hydrox/Mag Hydrox/Simeth [Mag-Al Plus] 30 ml PO Q4H PRN Diazepam [Valium] 5 mg PO Q6H PRN HYDROmorphone [Dilaudid] 1 mg IVPUSH Q2H PRN Magnesium Hydroxide [Milk of Magnesia] 30 ml PO BID PRN Naloxone [Narcan] 0.2 mg IVPUSH ONETIME PRN Ondansetron [Zofran] 8 mg IVPUSH Q4H PRN Sennosides [Senna] 8.6 mg PO BID PRN Sodium Chloride 0.9% [Saline Flush] 10 ml FLUSH ASDIRECTED PRN Zolpidem [Ambien] 5 mg PO BEDTIME PRN Encourage Fluids [OM.PC] Routine Saline Lock Insert [OM.PC] Routine Sequential Compression Device [OM.PC] Routine Resuscitation Status Routine 07/05/17 15:11 Notify Provider Consults [RC] ASDIRECTED 07/05/17 15:12 oxyCODONE 5 - 10 mg PO Q4H PRN 07/05/17 18:00 ceFAZolin [Ancef] 2 gm Sodium Chloride 0.9% [Normal Saline] 50 ml IV Q8H 07/05/17 Lunch Advance Diet Instructions [DIET] 07/06/17 09:00 Cetirizine [ZyrTEC] 10 mg PO DAILY 07/07/17 05:15 BASIC METABOLIC PANEL,BMP [CHEM] DAILY CBC WITH AUTO DIFF [HEME] DAILY 07/08/17 05:15 BASIC METABOLIC PANEL,BMP [CHEM] DAILY CBC WITH AUTO DIFF [HEME] DAILY 07/09/17 05:15 BASIC METABOLIC PANEL,BMP [CHEM] DAILY CBC WITH AUTO DIFF [HEME] DAILY - Plan Plan:: Patient is doing very well. We'll plan to send her home tomorrow. We will continue with oral pain medication at this time. Patient will work with physical therapy today for strengthening.
--- NOTE | 2017-07-06 11:12 | PCM.CONSN ---
- General Info Date of Service: 07/06/17 Functional Status: Reports: Pain Controlled, Tolerating Diet, Ambulating - Review of Systems General: Denies: Fever, Chills Pulmonary: Reports: No Symptoms Cardiovascular: Reports: No Symptoms Gastrointestinal: Reports: No Symptoms Musculoskeletal: Reports: Back Pain Systems Review Comment:: This patient has been stable since surgery yesterday, pain control has been adequate. Vital signs stable and she has remained afebrile. - Patient Data Vitals - Most Recent: Last Vital Signs Temp 99.3 F 07/06/17 07:23 Pulse 97 07/06/17 07:23 Resp 16 07/06/17 07:23 BP 100/65 07/06/17 07:23 Pulse Ox 96 07/06/17 07:35 Weight - Most Recent: 226 lb 0.004 oz I&O - Last 24 Hours: Intake & Output 07/05/17 07/06/17 07/06/17 22:59 06:59 14:59 Intake Total 1057 6816 537 Output Total 336 208 275 Balance 721 1458 262 Lab Results Last 24 Hours: Laboratory Results - last 24 hr 07/06/17 07/06/17 Range/Units 05:40 05:40 WBC 20.4 H (4.5-11.0) K/uL RBC 3.43 (3.30-5.50) M/uL Hgb 9.7 L D (12.0-15.0) g/dL Hct 30.2 L (36.0-48.0) % MCV 88 (80-98) fL MCH 28 (27-31) pg MCHC 32 (32-36) % Plt Count 229 (150-400) K/uL Neut % (Auto) 87 H (36-66) % Lymph % (Auto) 6 L (24-44) % [place] % (Auto) 7 H (2-6) % Eos % (Auto) 0 L (2-4) % Baso % (Auto) 0 (0-1) % Sodium 140 (140-148) mmol/L Potassium 4.5 (3.6-5.2) mmol/L Chloride 106 (100-108) mmol/L Carbon Dioxide 26 (21-32) mmol/L Anion Gap 8.1 (5.0-14.0) mmol/L BUN 16 (7-18) mg/dL Creatinine 1.3 H (0.6-1.0) mg/dL Est Cr Clr Drug Dosing 34.74 mL/min Estimated GFR (MDRD) 41 L (>60) Glucose 132 H (74-106) mg/dL Calcium 8.6 (8.5-10.1) mg/dL Med Orders - Current: Current Medications Al Hydroxide/Mg Hydroxide (Mag-Al Plus) 30 ml PO Q4H PRN PRN Reason: Indigestion Cetirizine HCl (Zyrtec) 10 mg PO DAILY [facility] Last Admin: 07/06/17 08:47 Dose: 10 mg Diazepam (Valium.) 5 mg PO Q6H PRN PRN Reason: Spasms Gabapentin (Neurontin) 100 mg PO TID [facility] Last Admin: 07/06/17 08:48 Dose: 100 mg Hydromorphone HCl (Dilaudid) 1 mg IVPUSH Q2H PRN PRN Reason: Pain Last Admin: 07/05/17 22:09 Dose: 1 mg Lactated Ringer's (Ringers, Lactated) 1,000 mls @ 125 mls/hr IV ASDIRECTED [facility] Last Admin: 07/06/17 04:02 Dose: 125 mls/hr Magnesium Hydroxide (Milk Of Magnesia) 30 ml PO BID PRN PRN Reason: Constipation Naloxone HCl (Narcan) 0.2 mg IVPUSH ONETIME PRN PRN Reason: Oversedation Verify Scopolamine (Patch) 0 each TOP DAILY [facility] Last Admin: 07/06/17 08:48 Dose: 1 each Ondansetron HCl (Zofran) 8 mg IVPUSH Q4H PRN PRN Reason: Nausea/Vomiting Oxycodone HCl (Oxycodone) 5 - 10 mg PO Q4H PRN PRN Reason: Pain Last Admin: 07/06/17 07:35 Dose: 5 mg Scopolamine (Transderm-Scop) 1.5 mg TOP Q72H [facility] Stop: 07/08/17 06:00 Last Admin: 07/05/17 07:55 Dose: 1.5 mg Senna (Senna) 8.6 mg PO BID PRN PRN Reason: Constipation Sodium Chloride (Saline Flush) 10 ml FLUSH ASDIRECTED PRN PRN Reason: Keep Vein Open Zolpidem Tartrate (Ambien) 5 mg PO BEDTIME PRN PRN Reason: Sleep Discontinued Medications Ropivacaine 49.25 ml/Ketorolac Tromethamine 30 mg/Epinephrine HCl 0.5 mg/ Clonidine HCl 80 mcg/ Sodium Chloride 48.45 ml 0 ml INJECT ONETIME ONE Stop: 07/05/17 10:01 Last Admin: 07/05/17 13:18 Dose: 100 ml Dexamethasone (Dexamethasone) Confirm Administered Dose 4 mg .ROUTE .STK-MED ONE Stop: 07/05/17 09:12 Ephedrine Sulfate (Ephedrine Sulfate) Confirm Administered Dose 50 mg .ROUTE .STK-MED ONE Stop: 07/05/17 12:58 Fentanyl (Sublimaze) Confirm Administered Dose 100 mcg .ROUTE .STK-MED ONE Stop: 07/05/17 13:40 Fentanyl Citrate (Fentanyl) Confirm Administered Dose 500 mcg .ROUTE .STK-MED ONE Stop: 07/05/17 09:12 Gabapentin (Neurontin) 300 mg PO ONETIME ONE Stop: 07/05/17 08:01 Last Admin: 07/05/17 07:54 Dose: 300 mg Glycopyrrolate (Robinul) Confirm Administered Dose 1 mg .ROUTE .STK-MED ONE Stop: 07/05/17 09:12 Hydroxyzine HCl (Vistaril) 100 mg IM ONETIME ONE Stop: 07/05/17 15:23 Last Admin: 07/05/17 15:25 Dose: 100 mg Lactated Ringer's (Ringers, Lactated) 1,000 mls @ 0 mls/hr IV ASDIRECTED [facility] PRN Reason: KVO Last Admin: 07/05/17 21:10 Dose: 25 mls/hr Cefazolin Sodium 2 gm/ Sodium (Chloride) 50 mls @ 100 mls/hr IV ONETIME ONE Stop: 07/05/17 08:59 Last Admin: 07/05/17 12:16 Dose: 100 mls/hr Tranexamic Acid 1,000 mg/ (Sodium Chloride) 60 mls @ 240 mls/hr IV Q3H [facility] Stop: 07/05/17 13:14 Last Admin: 07/05/17 15:14 Dose: 240 mls/hr Ketamine HCl 100 mg/ Sodium (Chloride) 100 mls @ 16 mls/hr IV ASDIRECTED [facility] Stop: 07/05/17 12:00 Lactated Ringer's (Ringers, Lactated) Confirm Administered Dose 1,000 mls @ as directed .ROUTE .STK-MED ONE Stop: 07/05/17 13:51 Cefazolin Sodium 2 gm/ Sodium (Chloride) 50 mls @ 100 mls/hr IV Q8H [facility] Stop: 07/06/17 07:44 Last Admin: 07/05/17 18:53 Dose: Not Given Acetaminophen 1,000 mg/ Premix 100 mls @ 400 mls/hr IV ONETIME ONE Stop: 07/05/17 15:59 Last Admin: 07/05/17 15:36 Dose: 400 mls/hr Cefazolin Sodium 2 gm/ Sodium (Chloride) 50 mls @ 100 mls/hr IV Q8H [facility] Stop: 07/06/17 10:29 Last Admin: 07/06/17 10:15 Dose: 100 mls/hr Lactated Ringer's (Ringers, Lactated) 500 mls @ 250 mls/hr IV BOLUS [facility] Last Admin: 07/05/17 22:09 Dose: 250 mls/hr Ketamine HCl (Ketalar) 26 mg IV ONETIME ONE Stop: 07/05/17 10:01 Last Admin: 07/05/17 18:52 Dose: Not Given Lidocaine HCl (Xylocaine-Mpf 1%) Confirm Administered Dose 5 ml .ROUTE .STK-MED ONE Stop: 07/05/17 09:02 Last Admin: 07/05/17 18:52 Dose: Not Given Lidocaine HCl (Xylocaine-Mpf 1%) 0.5 ml INJECT ONETIME ONE Stop: 07/05/17 09:17 Last Admin: 07/05/17 18:52 Dose: Not Given Midazolam HCl (Versed 1 Mg/Ml) Confirm Administered Dose 2 mg .ROUTE .STK-MED ONE Stop: 07/05/17 09:12 Neostigmine Methylsulfate (Neostigmine) Confirm Administered Dose 5 mg .ROUTE .STK-MED ONE Stop: 07/05/17 09:12 Ondansetron HCl (Zofran) Confirm Administered Dose 4 mg .ROUTE .STK-MED ONE Stop: 07/05/17 09:12 Povidone Iodine (Betadine 10% Soln) Confirm Administered Dose 1 ml .ROUTE .STK- MED ONE Stop: 07/05/17 11:13 Last Admin: 07/05/17 13:05 Dose: 40 ml Propofol (Diprivan 20 Ml) Confirm Administered Dose 200 mg .ROUTE .STK-MED ONE Stop: 07/05/17 09:12 Rocuronium [place] (Zemuron) Confirm Administered Dose 50 mg .ROUTE .STK-MED ONE Stop: 07/05/17 09:12 Succinylcholine Chloride (Quelicin) Confirm Administered Dose 200 mg .ROUTE .STK -MED ONE Stop: 07/05/17 09:12 Thrombin (Thrombin-Jmi) Confirm Administered Dose 15,000 unit .ROUTE .STK-MED ONE Stop: 07/05/17 11:13 Last Admin: 07/05/17 13:06 Dose: 10,000 unit - Exam Quality Assessment: DVT Prophylaxis General: Alert, Oriented, Cooperative Lungs: Clear to Auscultation, Normal Respiratory Effort Cardiovascular: Regular Rate, Regular Rhythm, No Murmurs GI/Abdominal Exam: Normal Bowel Sounds, Soft, Non-Tender, No Organomegaly, No Distention Extremities: Non-Tender, No Pedal Edema Skin: Warm, Dry Consult PN Assessment/Plan Procedures: Procedures ASSAY OF LACTIC ACID (01/08/17) ASSAY OF MAGNESIUM (01/08/17) ASSAY OF TROPONIN QUANT (01/08/17) BLOOD CULTURE FOR BACTERIA (01/08/17) BLOOD GASES ANY COMBINATION (01/08/17) C-REACTIVE PROTEIN (01/08/17) CHEST X-RAY 1 VIEW FRONTAL (01/08/17) COMP SCREEN MAMMOGRAM ADD-ON (08/18/16) COMPLETE CBC AUTOMATED (06/22/17) COMPLETE CBC W/AUTO DIFF WBC (01/08/17) COMPREHEN METABOLIC PANEL (06/22/17) CT ABD & PELVIS W/O CONTRAST (01/08/17) CULTURE OTHR SPECIMN AEROBIC (06/22/17) ELECTROCARDIOGRAM TRACING (06/22/17) EMERGENCY DEPT VISIT (01/08/17) EMERGENCY DEPT VISIT (09/28/15) HOT OR COLD PACKS THERAPY (01/04/17) HYDRATE IV INFUSION ADD-ON (01/08/17) INSERT TEMP BLADDER CATH (01/08/17) MANUAL THERAPY 1/> REGIONS (01/04/17) METABOLIC PANEL TOTAL CA (01/08/17) MRI JNT OF LWR EXTRE W/O DYE (02/20/17) MRI LUMBAR SPINE W/O DYE (02/20/17) OFFICE/OUTPATIENT VISIT EST (04/27/17) OFFICE/OUTPATIENT VISIT NEW (02/20/17) POS AIRWAY PRESSURE CPAP (01/08/17) PT EVAL LOW COMPLEX 20 MIN (01/04/17) PT EVALUATION (12/11/14) ROUTINE VENIPUNCTURE (06/22/17) THER/DIAG CONCURRENT INF (01/08/17) THER/PROPH/DIAG IV INF ADDON (01/08/17) THER/PROPH/DIAG IV INF INIT (01/08/17) THERAPEUTIC EXERCISES (12/18/14) ULTRASOUND THERAPY (12/18/14) URINALYSIS AUTO W/O SCOPE (06/22/17) URINALYSIS AUTO W/SCOPE (01/08/17) URINE CULTURE/COLONY COUNT (01/08/17) WITHDRAWAL OF ARTERIAL BLOOD (01/08/17) X-RAY EXAM L-2 SPINE 4/>VWS (02/20/17) Problem List Initiated/Reviewed/Updated: Yes My Orders Last 24 Hours: My Active Orders 07/05/17 22:00 Gabapentin [Neurontin] 100 mg PO TID 07/05/17 23:59 Lactated Ringers [Ringers, Lactated] 1,000 ml IV ASDIRECTED Plan: ASSESSMENT AND RECOMMENDATIONS STATUS POST LUMBAR SPINAL SURGERY-stable and doing well since surgery yesterday -Postoperative care per Dr. Kincaid HISTORY OF COMPLICATED URINARY TRACT INFECTION-secondary to nephrolithiasis, resulting in prolonged hospitalization for management of sepsis and respiratory failure
[2017-07-07] MEDS: oxyCODONE 5 MG Tab PO PRN ×2 (00:23→07:42)
[2017-07-07 07:27] VITALS: BP 106/75
[2017-07-07] MEDS: Gabapentin 100 MG Cap PO SCH (09:33)
[2017-07-07] MEDS: Cetirizine 10 MG Tab PO SCH (09:33)
[2017-07-07] MEDS: VERIFY SCOPOLAMINE PATCH TOP SCH (09:34)
--- NOTE | 2017-07-20 09:36 | PCM.DCSUM1 ---
Discharge Summary - Hospital Course Free Text/Narrative:: patient is status postop day 2 of a lumbar fusion. She is doing very well. Patient's tolerating ambulation without any difficulties. Pain is under control with oral pain medication. She is continuing to work with PT OT for strengthening. - Discharge Data Discharge Date: 07/07/17 Discharge Disposition: Home, Self-Care 01 Condition: Good - Patient Summary/Data Consults: Consultations 07/05/17 15:08 Consult to Physician [CONS] Routine Consulting Provider: Rey Bunch Call Completed to Consulting Physician: Yes OT Evaluation and Treatment [CONS] Routine Please Evaluate and Treat. OT Reason for Consult: Strengthening This query below is only for informational purposes and is not editable. PT Evaluation and Treatment [CONS] Routine Please Evaluate and Treat. PT Reason for Consult: Strengthening This query below is only for informational purposes and is not editable. - Patient Instructions Diet: Heart Healthy Diet, Usual Diet as Tolerated Activity: Apply Ice, As Tolerated Driving: Do Not Drive Showering/Bathing: May Shower, No Tub Bathing/Swimming Wound/Incision Care: Keep Operative Site/Wound Site Clean and Dry, Change Dressing Daily Notify Provider of: Fever, Increased Pain, Swelling and Redness, Drainage, Nausea and/or Vomiting - Discharge Plan Prescriptions/Med Rec: Acetaminophen/oxyCODONE [Percocet 325-5 MG] 1 each PO Q6HR #90 tab Home Medications: Home Meds Cetirizine [ZyrTEC] 10 mg PO DAILY 02/20/17 [History] Fluticasone Propionate [Flonase] 2 sprays NS DAILY 02/20/17 [History] Gabapentin [Neurontin] 100 mg PO TID 02/20/17 [History] Naproxen Sodium [Aleve] 1 tab PO BID PRN 04/27/17 [History] Aspirin [Halfprin] 81 mg PO DAILY 07/05/17 [History] Acetaminophen/oxyCODONE [Percocet 325-5 MG] 1 each PO Q6HR #90 tab 07/07/17 [Rx] Patient Handouts: Spinal Fusion, Care After, Spinal Fusion, Care After, Easy-to -Read, Preventing Constipation After Surgery - Discharge Summary/Plan Comment DC Time >30 min.: Yes Discharge Summary/Plan Comment: patient is doing very well facial discharge home. We did give her Percocet to take at home. She has a occupational therapy coming to her house to assess. Patient will follow-up with me in 1 month. She'll notify me if she has any other issues in the meantime. - Patient Data Vitals - Most Recent: Last Vital Signs Temp 37.7 C 07/07/17 07:24 Pulse 102 H 07/07/17 07:24 Resp 18 07/07/17 07:24 BP 106/75 07/07/17 07:24 Pulse Ox 92 L 07/07/17 07:24 Weight - Most Recent: 226 lb 0.004 oz Med Orders - Current: Current Medications Discontinued Medications Al Hydroxide/Mg Hydroxide (Mag-Al Plus) 30 ml PO Q4H PRN PRN Reason: Indigestion Cetirizine HCl (Zyrtec) 10 mg PO DAILY [facility] Last Admin: 07/07/17 09:33 Dose: 10 mg Ropivacaine 49.25 ml/Ketorolac Tromethamine 30 mg/Epinephrine HCl 0.5 mg/ Clonidine HCl 80 mcg/ Sodium Chloride 48.45 ml 0 ml INJECT ONETIME ONE Stop: 07/05/17 10:01 Last Admin: 07/05/17 13:18 Dose: 100 ml Dexamethasone (Dexamethasone) Confirm Administered Dose 4 mg .ROUTE .STK-MED ONE Stop: 07/05/17 09:12 Diazepam (Valium.) 5 mg PO Q6H PRN PRN Reason: Spasms Ephedrine Sulfate (Ephedrine Sulfate) Confirm Administered Dose 50 mg .ROUTE .STK-MED ONE Stop: 07/05/17 12:58 Fentanyl (Sublimaze) Confirm Administered Dose 100 mcg .ROUTE .STK-MED ONE Stop: 07/05/17 13:40 Fentanyl Citrate (Fentanyl) Confirm Administered Dose 500 mcg .ROUTE .STK-MED ONE Stop: 07/05/17 09:12 Gabapentin (Neurontin) 300 mg PO ONETIME ONE Stop: 07/05/17 08:01 Last Admin: 07/05/17 07:54 Dose: 300 mg Gabapentin (Neurontin) 100 mg PO TID [facility] Last Admin: 07/07/17 09:33 Dose: 100 mg Glycopyrrolate (Robinul) Confirm Administered Dose 1 mg .ROUTE .STK-MED ONE Stop: 07/05/17 09:12 Hydromorphone HCl (Dilaudid) 1 mg IVPUSH Q2H PRN PRN Reason: Pain Last Admin: 07/05/17 22:09 Dose: 1 mg Hydroxyzine HCl (Vistaril) 100 mg IM ONETIME ONE Stop: 07/05/17 15:23 Last Admin: 07/05/17 15:25 Dose: 100 mg Lactated Ringer's (Ringers, Lactated) 1,000 mls @ 0 mls/hr IV ASDIRECTED [facility] PRN Reason: KVO Last Admin: 07/05/17 21:10 Dose: 25 mls/hr Cefazolin Sodium 2 gm/ Sodium (Chloride) 50 mls @ 100 mls/hr IV ONETIME ONE Stop: 07/05/17 08:59 Last Admin: 07/05/17 12:16 Dose: 100 mls/hr Tranexamic Acid 1,000 mg/ (Sodium Chloride) 60 mls @ 240 mls/hr IV Q3H [facility] Stop: 07/05/17 13:14 Last Admin: 07/05/17 15:14 Dose: 240 mls/hr Ketamine HCl 100 mg/ Sodium (Chloride) 100 mls @ 16 mls/hr IV ASDIRECTED [facility] Stop: 07/05/17 12:00 Lactated Ringer's (Ringers, Lactated) Confirm Administered Dose 1,000 mls @ as directed .ROUTE .STK-MED ONE Stop: 07/05/17 13:51 Cefazolin Sodium 2 gm/ Sodium (Chloride) 50 mls @ 100 mls/hr IV Q8H [facility] Stop: 07/06/17 07:44 Last Admin: 07/05/17 18:53 Dose: Not Given Acetaminophen 1,000 mg/ Premix 100 mls @ 400 mls/hr IV ONETIME ONE Stop: 07/05/17 15:59 Last Admin: 07/05/17 15:36 Dose: 400 mls/hr Cefazolin Sodium 2 gm/ Sodium (Chloride) 50 mls @ 100 mls/hr IV Q8H [facility] Stop: 07/06/17 10:29 Last Admin: 07/06/17 10:15 Dose: 100 mls/hr Lactated Ringer's (Ringers, Lactated) 500 mls @ 250 mls/hr IV BOLUS [facility] Last Admin: 07/05/17 22:09 Dose: 250 mls/hr Lactated Ringer's (Ringers, Lactated) 1,000 mls @ 125 mls/hr IV ASDIRECTED [facility] Last Admin: 07/06/17 04:02 Dose: 125 mls/hr Ketamine HCl (Ketalar) 26 mg IV ONETIME ONE Stop: 07/05/17 10:01 Last Admin: 07/05/17 18:52 Dose: Not Given Lidocaine HCl (Xylocaine-Mpf 1%) Confirm Administered Dose 5 ml .ROUTE .STK-MED ONE Stop: 07/05/17 09:02 Last Admin: 07/05/17 18:52 Dose: Not Given Lidocaine HCl (Xylocaine-Mpf 1%) 0.5 ml INJECT ONETIME ONE Stop: 07/05/17 09:17 Last Admin: 07/05/17 18:52 Dose: Not Given Magnesium Hydroxide (Milk Of Magnesia) 30 ml PO BID PRN PRN Reason: Constipation Midazolam HCl (Versed 1 Mg/Ml) Confirm Administered Dose 2 mg .ROUTE .STK-MED ONE Stop: 07/05/17 09:12 Naloxone HCl (Narcan) 0.2 mg IVPUSH ONETIME PRN PRN Reason: Oversedation Neostigmine Methylsulfate (Neostigmine) Confirm Administered Dose 5 mg .ROUTE .STK-MED ONE Stop: 07/05/17 09:12 Verify Scopolamine (Patch) 0 each TOP DAILY [facility] Last Admin: 07/07/17 09:34 Dose: Not Given Ondansetron HCl (Zofran) Confirm Administered Dose 4 mg .ROUTE .STK-MED ONE Stop: 07/05/17 09:12 Ondansetron HCl (Zofran) 8 mg IVPUSH Q4H PRN PRN Reason: Nausea/Vomiting Oxycodone HCl (Oxycodone) 5 - 10 mg PO Q4H PRN PRN Reason: Pain Last Admin: 07/07/17 07:42 Dose: 5 mg Povidone Iodine (Betadine 10% Soln) Confirm Administered Dose 1 ml .ROUTE .STK- MED ONE Stop: 07/05/17 11:13 Last Admin: 07/05/17 13:05 Dose: 40 ml Propofol (Diprivan 20 Ml) Confirm Administered Dose 200 mg .ROUTE .STK-MED ONE Stop: 07/05/17 09:12 Rocuronium [place] (Zemuron) Confirm Administered Dose 50 mg .ROUTE .STK-MED ONE Stop: 07/05/17 09:12 Scopolamine (Transderm-Scop) 1.5 mg TOP Q72H [facility] Stop: 07/08/17 06:00 Last Admin: 07/05/17 07:55 Dose: 1.5 mg Senna (Senna) 8.6 mg PO BID PRN PRN Reason: Constipation Sodium Chloride (Saline Flush) 10 ml FLUSH ASDIRECTED PRN PRN Reason: Keep Vein Open Succinylcholine Chloride (Quelicin) Confirm Administered Dose 200 mg .ROUTE .STK -MED ONE Stop: 07/05/17 09:12 Thrombin (Thrombin-Jmi) Confirm Administered Dose 15,000 unit .ROUTE .STK-MED ONE Stop: 07/05/17 11:13 Last Admin: 07/05/17 13:06 Dose: 10,000 unit Zolpidem Tartrate (Ambien) 5 mg PO BEDTIME PRN PRN Reason: Sleep *Q Meaningful Use (DIS) - VTE *Q VTE Criteria *Q: - Stroke *Q Stroke Criteria *Q: - AMI *Q AMI Criteria *Q:
== END 2017-07-07 10:45 | disposition home or self-care (01) | DRG 460 ==
LOC: JP.MS 07-05 07:11 → JP.SDS 07-05 07:11 → EDSTATUS 07-05 10:00 → JP.MS 07-05 15:09
PROVIDERS: ADMIT Orthopaedic Surgery; ATTEND Orthopaedic Surgery
PROC: 0SG00A1 (ICD-10-PCS; principal; 2017-07-05)
PROC: 0SB20ZZ Excision of Lumbar Vertebral Disc, Open Approach (ICD-10-PCS; principal; 2017-07-05)
PROC: 00NY0ZZ Release Lumbar Spinal Cord, Open Approach (ICD-10-PCS; principal; 2017-07-05)
DX: M48.06 Spinal stenosis, lumbar region (principal); M43.16 Spondylolisthesis, lumbar region; E66.01 Morbid (severe) obesity due to excess calories; Z68.39 Body mass index [BMI] 39.0-39.9, adult; Z79.82 Long term (current) use of aspirin; Z88.7 Allergy status to serum and vaccine
CPT/HCPCS: 36415; 76001; 80048; 85025; 86850; 86900; 86901; 94762; 97161-GP; 97165-GO; 97530-GP; 97535-GP; A9270-GY; C1713; J0131; J0171; J0330; J0690; J0735; J1100; J1170; J1885; J2250; J2405; J2704; J2710; J2795; J3010; J3410; J7050; J7120

== ENCOUNTER 2017-07-30 08:15 | Emergency (ER) | payer MEDICARE, OTHER ==
[2017-07-30 08:32] VITALS: BP 143/73
--- NOTE | 2017-07-30 09:32 | EDM.PDOC ---
ED HPI GENERAL MEDICAL PROBLEM - General Chief Complaint: Wound Recheck Stated Complaint: BANDAGE CAME OFF OF BACK Time Seen by Provider: 07/30/17 08:40 Source of Information: Reports: Patient History Limitations: Reports: No Limitations - History of Present Illness INITIAL COMMENTS - FREE TEXT/NARRATIVE: 66-year-old female who underwent back surgery over 3 weeks ago has been doing fine, ran a low-grade fever of 100.5 4 days ago but felt fine. This morning when she woke up she noticed quite a bit of fluid draining from her surgical incision on her back. She has no pain, no fevers or chills or other symptoms. Onset: Unknown/Unsure (Sometime overnight she started having drainage) Location: Reports: Back - Related Data Allergies Allergy/AdvReac Type Severity Reaction Status Date / Time flu vaccine Allergy Cannot Uncoded 01/07/17 21:43 Remember Home Meds: Home Meds Cetirizine [ZyrTEC] 10 mg PO DAILY 02/20/17 [History] Fluticasone Propionate [Flonase] 2 sprays NS DAILY 02/20/17 [History] Gabapentin [Neurontin] 100 mg PO TID 02/20/17 [History] Aspirin [Halfprin] 81 mg PO DAILY 07/05/17 [History] Acetaminophen/oxyCODONE [Percocet 325-5 MG] 1 each PO Q6HR #90 tab 07/07/17 [Rx] Past Medical History HEENT History: Reports: Hard of Hearing, Sinusitis Other HEENT History: wears glasses and bilat hearing aides Gastrointestinal History: Reports: Colon Polyp Genitourinary History: Reports: Renal Calculus [employer] History: Reports: Musculoskeletal History: Reports: Arthritis, Back Pain, Chronic Neurological History: Reports: Other (See Below) Other Neuro History: 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 Endocrine/Metabolic History: Reports: Obesity/BMI 30+ Hematologic History: Reports: Anemia, Blood Transfusion(s), Iron Deficiency - Infectious Disease History Infectious Disease History: Reports: Chicken Pox, Measles, Mumps - Past Surgical History HEENT Surgical History: Reports: Tonsillectomy GI Surgical History: Reports: Cholecystectomy, Colonoscopy, Polypectomy Female Surgical History: Reports: Hysterectomy, Lithotripsy/[facility] Endocrine Surgical History: Reports: None Neurological Surgical History: Reports: Lumbar Spine Dermatological Surgical History: Reports: None Social & Family History - Family History Cardiac: Reports: [place] Musculoskeletal: Reports: Arthritis Oncologic: Reports: Lung - Tobacco Use Smoking Status *Q: Never Smoker Second Hand Smoke Exposure: No - Caffeine Use Caffeine Use: Reports: Tea - Recreational Drug Use Recreational Drug Use: No ED ROS GENERAL - Review of Systems Review Of Systems: See Below Constitutional: Reports: Fever (4 days ago) Respiratory: Denies: Shortness of Breath Cardiovascular: Denies: Chest Pain GI/Abdominal: Denies: Abdominal Pain, Nausea, Vomiting : Reports: No Symptoms Skin: Reports: No Symptoms Neurological: Reports: No Symptoms. Denies: Headache Psychiatric: Reports: No Symptoms ED EXAM, GENERAL - Physical Exam Exam: See Below Exam Limited By: No Limitations General Appearance: Alert, No Apparent Distress Respiratory/Chest: No Respiratory Distress, Lungs Clear Cardiovascular: Regular Rate, Rhythm Back Exam: Other (Dressings were removed, the patient does have some serosanguineous drainage from the lower aspect of the surgical incision. There is no significant tenderness, erythema or swelling.) Course - Vital Signs Last Recorded V/S: Last Vital Signs Temp 96.8 F 07/30/17 08:30 Pulse 90 07/30/17 08:30 Resp 18 07/30/17 08:30 BP 143/73 H 07/30/17 08:30 Pulse Ox 99 07/30/17 08:30 - Orders/Labs/Meds Orders: Active Orders 24 hr Category Date Time Status CULTURE WOUND + SMEAR [RM] Stat Lab 07/30/17 09:25 Results Labs: Laboratory Tests 07/30/17 07/30/17 Range/Units 09:11 09:11 WBC 8.7 (4.5-11.0) K/uL RBC 3.85 (3.30-5.50) M/uL Hgb 10.7 L (12.0-15.0) g/dL Hct 33.2 L (36.0-48.0) % MCV 86 (80-98) fL MCH 28 (27-31) pg MCHC 32 (32-36) % Plt Count 426 H (150-400) K/uL Neut % (Auto) 65 (36-66) % Lymph % (Auto) 12 L (24-44) % [place] % (Auto) 11 H (2-6) % Eos % (Auto) 11 H (2-4) % Baso % (Auto) 1 (0-1) % C-Reactive Protein 10.67 H (0.0-0.3) mg/dL - Re-Assessments/Exams Free Text/Narrative Re-Assessment/Exam: 07/30/17 09:32 A culture of the drainage was obtained, CBC and CRP were drawn. 07/30/17 09:41 A new dressing was applied, I discussed her case with orthopedics. CBC is normal but CRP is elevated but apparently that is fairly common after back surgery. She'll be started on cephalexin 500 mg twice a day, her appointment will be moved up until tomorrow and Shanta Orozco of orthopedics will call her in the morning. She may have to change her dressings several times daily until her recheck tomorrow. Departure - Departure Time of Disposition: 09:52 Disposition: Home, Self-Care 01 Condition: Good Clinical Impression: Seroma, postoperative Qualifiers: Surgical complication system/body Area: musculoskeletal system Procedure type: musculoskeletal Qualified Code(s): M96.842 - Postprocedural seroma of a musculoskeletal structure following a musculoskeletal system procedure - Discharge Information Instructions: Seroma Referrals: Nano Agarwal MD [Primary Care Provider] - Forms: ED Department Discharge Care Plan Goals: Take antibiotic twice daily as prescribed. You may have to change your dressings several times a day until your recheck tomorrow. They will call you in the morning with a time to come in to be rechecked in the orthopedic clinic. Return sooner if worsening or concerns. - My Orders Last 24 Hours: My Active Orders 07/30/17 09:25 CULTURE WOUND + SMEAR [RM] Stat - Assessment/Plan Last 24 Hours: My Active Orders 07/30/17 09:25 CULTURE WOUND + SMEAR [RM] Stat
== END 2017-07-30 09:52 | disposition home or self-care (01) ==
LOC: JP.ED 08:15
DX: M96.842 Postprocedural seroma of a musculoskeletal structure following a musculoskeletal system procedure (principal); M19.90 Unspecified osteoarthritis, unspecified site; E66.9 Obesity, unspecified; Z88.7 Allergy status to serum and vaccine; Z79.82 Long term (current) use of aspirin; Z79.899 Other long term (current) drug therapy
CPT/HCPCS: 36415; 85025; 86140; 87070; 87077; 87205; 99283; 99284

== ENCOUNTER 2018-02-09 06:03 | Inpatient (IN) | payer MEDICARE, OTHER ==
[~2018-02-09 06:03] MED LIST: Acetaminophen 500 MG Tab PO ONE; Gabapentin 300 MG Cap PO ONE; Scopolamine 1.5 MG Transdermal Patch TOP ONE
[2018-02-09] MEDS ORDERED: Lactated Ringers 1,000 ML IV SCH (06:45)
[2018-02-09] MEDS ORDERED: Povidone-Iodine 10% Soln 118.25 ML Bottle ONE (06:58)
[2018-02-09] MEDS ORDERED: Thrombin (Bovine) 5,000 Unit Kit ONE (06:58)
[2018-02-09] MEDS ORDERED: Succinylcholine 200 MG/10 ML MDV ONE (07:10)
[2018-02-09] MEDS ORDERED: Dexamethasone 4 MG/ML SDV ONE (07:10)
[2018-02-09] MEDS ORDERED: Rocuronium 50 MG/5 ML Vial ONE (07:10)
[2018-02-09] MEDS ORDERED: Ondansetron 4 MG/2 ML SDV ONE (07:10)
[2018-02-09] MEDS ORDERED: Propofol 200 MG/20 ML SDV ONE ×3 (07:10→10:35)
[2018-02-09] MEDS ORDERED: Ketamine 500 MG/5 ML MDV IV SCH (07:30)
[2018-02-09] MEDS ORDERED: ceFAZolin 2 GM in Premix Bag 1 BAG IV ONE (07:30)
[2018-02-09] MEDS: Tranexamic Acid 1,000 MG in Sodium Chloride 0.9% 50 ML IV SCH ×2 (09:17→16:49)
[2018-02-09] MEDS ORDERED: Bupivacaine 0.5%/EPINEPHrine 1:200,000 50 ML MDV ONE (11:13)
[2018-02-09] MEDS ORDERED: Naloxone 0.4 MG/ML SDV ONE (11:30)
[2018-02-09] MEDS ORDERED: fentaNYL 100 MCG/2 ML SDV IVPUSH ONE (11:54)
[2018-02-09] MEDS ORDERED: hydrOXYzine HCl 100 MG/2 ML SDV IM ONE (11:54)
[2018-02-09] MEDS ORDERED: HYDROmorphone/Normal Saline 15 MG/30 ML PCA IV PRN (12:12)
[2018-02-09] MEDS ORDERED: Atropine 0.4 MG/ML SDV ONE (12:56)
[2018-02-09] MEDS ORDERED: Naloxone 0.4 MG/ML SDV IV PRN (13:14)
[2018-02-09] MEDS ORDERED: hydrOXYzine HCl 100 MG/2 ML SDV IM PRN (13:22)
[2018-02-09] MEDS ORDERED: Ondansetron 4 MG/2 ML SDV IV PRN (13:22)
[2018-02-09] MEDS ORDERED: hydrOXYzine HCl 25 MG Tab PO PRN (13:23)
[2018-02-09] MEDS ORDERED: Cyclobenzaprine 10 MG Tab PO PRN (13:25)
[2018-02-09] MEDS: Gabapentin 300 MG Cap PO SCH ×2 (15:16→20:30)
[2018-02-09] MEDS: Dextrose 5%-Lactated Ringers 1,000 ML IV SCH ×2 (15:17→23:27)
[2018-02-09] MEDS: Pantoprazole 40 MG Vial IV SCH (15:19)
[2018-02-09] MEDS: VERIFY SCOP PATCH TOP SCH (15:25)
[2018-02-09] MEDS: Acetaminophen 500 MG Tab PO SCH ×2 (17:12→21:27)
[2018-02-09] MEDS: ceFAZolin 2 GM in Premix Bag 1 BAG IV SCH (17:13)
[2018-02-10] MEDS: ceFAZolin 2 GM in Premix Bag 1 BAG IV SCH ×2 (01:27→09:00)
[2018-02-10] MEDS: Acetaminophen 500 MG Tab PO SCH ×4 (04:23→21:52)
[2018-02-10] MEDS: POTASSIUM CITRATE 5 MEQ PO SCH ×3 (08:50→20:56)
[2018-02-10] MEDS: Gabapentin 300 MG Cap PO SCH ×3 (08:54→20:56)
[2018-02-10] MEDS: Docusate Sodium 100 MG Cap PO SCH ×2 (08:54→20:55)
[2018-02-10] MEDS: VERIFY SCOP PATCH TOP SCH (08:55)
[2018-02-10] MEDS: Dextrose 5%-Lactated Ringers 1,000 ML IV SCH ×2 (09:00→21:55)
[2018-02-10] MEDS: oxyCODONE 5 MG Tab PO PRN ×3 (10:05→22:26)
[2018-02-10] MEDS: Pantoprazole 40 MG Vial IV SCH (15:23)
[2018-02-10] MEDS ORDERED: Bisacodyl 5 MG Tab PO SCH (21:00)
[2018-02-11] MEDS: Acetaminophen 500 MG Tab PO SCH ×4 (04:02→21:10)
[2018-02-11] MEDS: oxyCODONE 5 MG Tab PO PRN (07:36)
[2018-02-11] MEDS: POTASSIUM CITRATE 5 MEQ PO SCH ×3 (09:21→20:24)
[2018-02-11] MEDS: Gabapentin 300 MG Cap PO SCH ×3 (09:22→20:24)
[2018-02-11] MEDS: Docusate Sodium 100 MG Cap PO SCH ×2 (09:22→20:24)
[2018-02-11] MEDS: VERIFY SCOP PATCH TOP SCH (09:23)
[2018-02-11] MEDS ORDERED: Remove SCOP Patch TRDERM ONE (10:00)
[2018-02-11] MEDS ORDERED: Magnesium Citrate Solution 296 ML Bottle PO ONE (11:00)
[2018-02-11] MEDS: Dextrose 5%-Lactated Ringers 1,000 ML IV SCH (13:37)
[2018-02-11] MEDS: Pantoprazole 40 MG Vial IV SCH (17:01)
--- NOTE | 2018-02-11 17:21 | PN ---
DATE OF SERVICE: 02/10/2018 The patient has been clinically stable overnight. The pain control with MOLD RUNNER is adequate, and we will switch her over to oxycodone today along with the other oral adjunctive pain medication. If there is some bowel stimulation, turn down the IV rate. She may be ready for discharge home tomorrow. Lamin Kincaid MD /[id number]
--- NOTE | 2018-02-11 17:32 | PN ---
DATE OF SERVICE: 02/11/2018 The patient has been afebrile with stable vital signs. No major problems were noted overnight. She did mention a low-grade temp, so we will work on getting more pulmonary toilet and activity going today, have her get in the shower, bottle of magnesium citrate as well as continuing the Colace and Dulcolax. Lamin Kincaid MD /[id number]
[2018-02-12] MEDS: Acetaminophen 500 MG Tab PO SCH ×2 (04:25→09:08)
[2018-02-12] MEDS: Docusate Sodium 100 MG Cap PO SCH (08:43)
[2018-02-12] MEDS: POTASSIUM CITRATE 5 MEQ PO SCH (08:43)
[2018-02-12] MEDS: Gabapentin 300 MG Cap PO SCH (08:43)
[2018-02-12] MEDS: VERIFY SCOP PATCH TOP SCH (08:43)
[2018-02-12 08:45] VITALS: BP 113/59
[2018-02-12] MEDS ORDERED: Pantoprazole 40 MG Tab.CR PO SCH (16:30)
--- NOTE | 2018-02-13 03:45 | DISCH ---
ADMISSION DIAGNOSES: 1. Spondylolisthesis, lumbar region. 2. Spinal stenosis, lumbar region. DISCHARGE DIAGNOSES: Anterior lumbar interbody fusion; L4-L5, L5-S1; aborted due to scarring. HISTORY: Ori Han is a pleasant 67-year-old female, who was scheduled to have an ALIF on 02/09/2018. 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 Surgery was not completed. The abdominal incision closed. There were no operative complications. On postop day 1, Ori was changed to oral pain medication, started on a diet. Her activity was good. On postop day 2, she did maintain a low-grade temperature and did not have a bowel movement, so was given a bottle of magnesium citrate along with the Colace and Dulcolax. On postop day 3, she was able to be discharged to home. PHYSICAL EXAMINATION: GENERAL: Ori Han is a 67-year-old female. She is alert and orientated. SKIN: Warm and dry. Color good. VITAL SIGNS: Height 5 feet 3 inches, weight is 210 pounds. TPR 99.1, 107, 16. Blood pressure 113/59. HEENT: Negative. NECK: Supple. HEART: Regular rate and rhythm. LUNGS: Clear. ABDOMEN: Dressings dry and intact. JOB drain is intact and has drained 20 and 25 mL the last 2 days. EXTREMITIES: Without peripheral edema. DISPOSITION: Discharged to home. CONDITION: Stable and improving. FOLLOWUP APPOINTMENT: With Maureen May PA-C, on 02/20/2018 at 9 a.m. DISCHARGE MEDICATIONS: She is to resume her home medications. New medication: Colace 100 mg b.i.d., #100. DIET: Usual diet as tolerated. Drink 8 to 10 glasses of water a day. ACTIVITY: No lifting greater than 10 pounds for 6 weeks. Driving, do not drive for 1 week. Shower/bathing, may shower. Wound and incision care, keep site clean and dry. Wear abdominal binder for 6 weeks and then as tolerated. Notify provider if any fever, increased pain, swelling, redness, drainage, nausea, or vomiting. SPECIAL INSTRUCTIONS: Use incentive spirometer 10 times every hour while awake. Strip, empty, measure, and record JBO drain 4 times a day and when half full.
--- NOTE | 2018-02-20 09:56 | OR ---
DATE OF PROCEDURE: 02/09/2018 PREOPERATIVE DIAGNOSIS: Pseudarthrosis L5-S1 and L4-L5 levels. 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 OPERATIVE PROCEDURE: Retroperitoneal exploration of area over distal lumbar and sacral areas (62551). ANESTHESIA: General. ASSISTANTS: 1. Maureen May PA-C. 2. MASSIEL Pearson. INDICATION FOR PROCEDURE: A 67-year-old presenting for anterior interbody fusion of levels of L4-L5 and L5-S1. The patient is status post previous posterior approach with an implant present at this time in the L4-L5 interspace to be removed at the time of the procedure today. Potential risks of the procedure, including bleeding, infection, injury to the vessels, resulting in potentially life-threatening bleeding or vascular occlusion were all reviewed, and the patient wishes to proceed. DESCRIPTION OF PROCEDURE: The patient was taken to the operating room, and after general endotracheal anesthesia was induced, she was placed in a supine position, a Mcconnell catheter inserted, and a roll underneath the left knee placed to offload pressure on the psoas muscle. A lower left paramedian incision was then made and carried down through the skin and subcutaneous tissue and through the anterior rectus sheath. The rectus sheath was then divided away from the rectus muscle in lateral direction, allowing dissection into the retroperitoneal space. This dissection then proceeded primarily bluntly, dissecting the ureter as then peritoneum was reflected away from the distal aorta, vena cava, and iliac muscles. At this point, that area was inspected. Initially, the plan was to proceed with exposure of the L4-L5 interspace. Given this, the left iliac artery was retracted somewhat medially, which exposed the left iliac vein. The dissection along this continued with division of soft tissue attaching to it. The iliolumbar vein was then identified and encircled. It was tied proximally with 3-0 Vicryl tie and clipped distally, and the points between those 2 sites of occlusion were then divided. The dissection was then continued upward. As one approached the area of the L4-L5 interspace, there was noted to be quite a bit of inflammation present. Two sets of segmental vessels were then identified during the course of dissection, which were divided with Harmonic scalpel. At that point, the dissection plane between the aorta and proximal iliac artery on the left side was attempted to be established. It was clear that it could not be safely undertaken, due to enlargement of inflammatory fusion between the vessels at that level. That inflammatory peel, which was roughly 3 or 4 mm thick, was then divided in the left lateral aspect of the vertebral bodies and interspace at that level. An attempt to proceed with dissection of that off the vertebral bodies and interspace area found no plane of adequate dissection. This situation was then discussed with Dr. Guanaco Kincaid, and it was felt, at this point, due to inflammatory and fibrotic changes in this area, mobilization of vessels to provide an anterior interbody fusion would not be safe, and we decided to conclude the procedure at this point. The area was irrigated with antibiotic-containing saline solution, and the retractors, which had been placed, were removed. The anterior rectus sheath was then closed with #2 Vicryl stitch. The subcutaneous tissue was approximated with a 10-[place] round Jose Eduardo-Bustamante drain and closed with 2 layers of 3-0 and 4-0 Vicryl stitch, and the skin was closed with cuco. Dressing was applied. The patient was taken to the recovery room in satisfactory condition. Lamin Kincaid MD /[id number]
== END 2018-02-12 11:45 | disposition home or self-care (01) | DRG 983 ==
LOC: JP.MS 06:03 → JP.SDS 06:03 → EDSTATUS 07:30 → JP.MS 12:40
PROVIDERS: ADMIT Orthopaedic Surgery; ATTEND Surgery
PROC: 0DJW0ZZ Inspection of Peritoneum, Open Approach (ICD-10-PCS; principal; 2018-02-09)
DX: M48.061 Spinal stenosis, lumbar region without neurogenic claudication (principal); M43.16 Spondylolisthesis, lumbar region; I80.8 Phlebitis and thrombophlebitis of other sites; I77.6 Arteritis, unspecified; Z98.1 Arthrodesis status; Z53.09 Procedure and treatment not carried out because of other contraindication; M19.90 Unspecified osteoarthritis, unspecified site; H91.90 Unspecified hearing loss, unspecified ear; Z79.82 Long term (current) use of aspirin; Z88.7 Allergy status to serum and vaccine; I87.8 Other specified disorders of veins
CPT/HCPCS: 76001; 94762; A9270-GY; C9113; J0330; J0461; J0690; J1100; J1170; J2020; J2310; J2405; J2704; J3010; J3410; J7030; J7042; J7050; J7120

== ENCOUNTER 2019-11-26 12:39 | Emergency (ER) | payer OTHER, MEDICARE ==
--- NOTE | 2019-11-26 13:42 | EDM.PDOC ---
ED HPI GENERAL MEDICAL PROBLEM - General Chief Complaint: Back Pain or Injury Stated Complaint: BACK PAIN Time Seen by Provider: 11/26/19 13:34 Source of Information: Reports: Patient, RN Notes Reviewed History Limitations: Reports: No Limitations - History of Present Illness INITIAL COMMENTS - FREE TEXT/NARRATIVE: 69-year-old female presents emergency department a complaint of back pain she recently had spinal surgery November 19 revision with spinal fusion lumbar region, following discharge home she has spent 24 hours at home had a difficult time she has been unwilling to take her pain medication as she is afraid to fall feels she cannot take care of herself. No fevers no nausea vomiting no shortness of breath Back Pain Score (Numeric/FACES): 8 - Related Data Allergies Allergy/AdvReac Type Severity Reaction Status Date / Time flu vaccine Allergy Cannot Uncoded 11/26/19 13:22 Remember Home Meds: Home Meds Cetirizine [ZyrTEC] 10 mg PO DAILY PRN 02/20/17 [History] Fluticasone Propionate [Flonase] 2 sprays NS DAILY 02/20/17 [History] Potassium Citrate [Potassium Citrate ER] 10 meq PO TID 10/02/17 [History] Multivitamin with Minerals [Multiple Vitamin] 1 tab PO DAILY 02/07/18 [History] Docusate Sodium [Colace] 100 mg PO BID cap 02/12/18 [Rx] Chlorthalidone 25 mg PO DAILY 11/26/19 [History] Diclofenac Sodium [Solaraze] 1 dose TOP ASDIRECTED 11/26/19 [History] Levothyroxine [Synthroid] 50 mcg PO DAILY 11/26/19 [History] oxyCODONE 5 - 10 mg PO Q4H 11/26/19 [History] Past Medical History HEENT History: Reports: Hard of Hearing, Sinusitis Other HEENT History: wears glasses and bilat hearing aides Gastrointestinal History: Reports: Colon Polyp Genitourinary History: Reports: Renal 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 Endocrine/Metabolic History: Reports: Obesity/BMI 30+ Hematologic History: Reports: Anemia, Blood Transfusion(s), Iron Deficiency - Infectious Disease History Infectious Disease History: Reports: Chicken Pox, Measles, Mumps, Rheumatic Fever, Scarlet Fever - Past Surgical History HEENT Surgical History: Reports: Adenoidectomy, Tonsillectomy GI Surgical History: Reports: Cholecystectomy, Colonoscopy, Polypectomy Female Surgical History: Reports: Hysterectomy, Lithotripsy/ESWL Neurological Surgical History: Reports: Lumbar Spine, Other (See Below) Other Neurological Surgeries/Procedures: 11/19/2019-lumbar spine surgery Social & Family History - Family History Family Medical History: Noncontributory Cardiac: Reports: [place] Musculoskeletal: Reports: Arthritis Oncologic: Reports: Lung - Tobacco Use Smoking Status *Q: Never Smoker - Caffeine Use Caffeine Use: Reports: Soda Other Caffeine Use: one time per week - Recreational Drug Use Recreational Drug Use: No ED ROS GENERAL - Review of Systems Review Of Systems: See Below Constitutional: Denies: Fever, Chills HEENT: Reports: No Symptoms Respiratory: Reports: No Symptoms Cardiovascular: Reports: No Symptoms GI/Abdominal: Reports: Diarrhea Musculoskeletal: Reports: Back Pain ED EXAM, GENERAL - Physical Exam Exam: See Below Free Text/Narrative:: Surgical wound clean dry and intact Exam Limited By: No Limitations General Appearance: Alert, Mild Distress Respiratory/Chest: No Respiratory Distress, Lungs Clear, Normal Breath Sounds, No Accessory Muscle Use, Chest Non-Tender Cardiovascular: Regular Rate, Rhythm, No Murmur GI/Abdominal: Soft, Non-Tender Course - Vital Signs Last Recorded V/S: Last Vital Signs Temp 96.9 F 11/26/19 13:21 Pulse 96 11/26/19 15:53 Resp 18 11/26/19 15:53 BP 149/70 H 11/26/19 15:53 Pulse Ox 100 11/26/19 15:53 - Orders/Labs/Meds Orders: Active Orders 24 hr Category Date Time Status oxyCODONE Med 11/26/19 15:50 Active 10 mg PO Q4H PRN Medication Orders Oxycodone HCl (Oxycodone) 10 mg PO Q4H PRN PRN Reason: Pain Last Admin: 11/26/19 16:01 Dose: 10 mg Meds: Medications Generic Name Dose Route Start Last Admin Trade Name Freq PRN Reason Stop Dose Admin Oxycodone HCl 10 mg 11/26/19 15:50 11/26/19 16:01 Oxycodone PO 10 mg Q4H PRN Administration Pain - Re-Assessments/Exams Free Text/Narrative Re-Assessment/Exam: 11/26/19 14:02 Call discussed case with the [facility] they are reviewing her case and will call back with options Departure - Departure Time of Disposition: 17:23 Disposition: DC[facility] Condition: Fair Clinical Impression: Status post lumbar surgery - Discharge Information Referrals: Nano Agarwal MD [Primary Care Provider] - Forms: ED Department Discharge Additional Instructions: Continue with your discharge medications from [facility], keep your regular follow-up appointments with neurosurgery and primary care Sepsis Event Note - Evaluation Sepsis Screening Result: No Definite Risk - Focused Exam Vital Signs: Vital Signs Temp Pulse Resp BP Pulse Ox 11/26/19 15:53 96 18 149/70 H 100 11/26/19 15:46 96 88/68 L 99 11/26/19 15:15 94 16 151/63 H 97 11/26/19 13:21 96.9 F 100 22 H 148/80 H 99 11/26/19 13:17 96.9 F 100 22 H 148/80 H 99 Date Exam was Performed: 11/26/19 Time Exam was Performed: 17:21 - My Orders Last 24 Hours: My Active Orders 11/26/19 15:50 oxyCODONE 10 mg PO Q4H PRN - Assessment/Plan Last 24 Hours: My Active Orders 11/26/19 15:50 oxyCODONE 10 mg PO Q4H PRN Plan: Assessment Acuity = acute Site and laterality = postop day 8 spinal fusion Etiology = surgical revision Manifestations = pain inability to care for herself at home Location of injury = Home Lab values = none Plan Because she had a qualifying stay at [facility] postsurgically I discharge planning was able to secure her retirement placement for rehabilitation, will be transferred via private vehicle This note was dictated using [employer] voice recognition software please call with any questions on syntax or grammar.
[2019-11-26 15:47] VITALS: PULSE 96
[2019-11-26] MEDS ORDERED: oxyCODONE 5 MG Tab PO PRN (15:50)
[2019-11-26 15:54] VITALS: BP 149/70
== END 2019-11-26 18:00 ==
LOC: JP.ED 12:39
DX: G89.18 Other acute postprocedural pain (principal); M54.5 Low back pain; Z88.7 Allergy status to serum and vaccine
CPT/HCPCS: 99283; A9270